=== PATIENT | male | born 1935 | race African-American/Black ===

== ENCOUNTER → 2016-07-12 | Outpatient (CLI) | payer MEDICARE, OTHER ==
[2016-01-14 17:30] VITALS: BP 160/81
[~2016-07-12] MED LIST: ASPI-482 PO; CARV25TA2 PO; DOCU100C5 PO; DOFE500C PO; DULO60CA44 PO; DUTA0.5C PO; FINA5TAB4 PO; FURO20TA3 PO; GABA-586 PO; HUM100IN3 SQ; HYDR-2678 PO; ISOS20TA2 PO; NITR0.4T6 SL; POTA20TA84 PO; PYRI200T PO; PYRI250T PO; SIMV20TA3 PO; TAMS0.4C97 PO; TORS20TA2 PO; VALS320T2 PO; WARF5TAB PO; WARF5TAB7 PO
[2016-07-12 09:53] LABS: BASO % 1 % (0-3); EOS % 4 % (0-3); HEMATOCRIT 32.1 % (39.0-53.0); HEMOGLOBIN 10.6 g/dL (13.0-17.5); LYMPH # 2.4 x10^3/uL (1.0-4.8); LYMPH % 36 % (24-48); MEAN CORPUSCULAR HEMOGLOBIN 28 pg (25-35); MEAN CORPUSCULAR HGB CONC 33 g/dL (31-37); MEAN CORPUSCULAR VOLUME 84 fL (79-100); MONO % 7 % (0-9); NEUT % 52 % (31-73); PLATELET COUNT 234 x10^3/uL (140-400); RED BLOOD COUNT 3.81 x10^6/uL (4.30-5.70); RED CELL DISTRIBUTION WIDTH 16.8 % (11.5-14.5); WHITE BLOOD COUNT 6.5 x10^3/uL (4.0-11.0)
[2016-07-12 10:01] LABS: INR 1.6 (0.8-1.1)
[2016-07-12 10:09] LABS: CALCIUM 9.2 mg/dL (8.5-10.1); CREATININE 1.9 mg/dL (0.7-1.3); GFR 41.2; POTASSIUM 4.2 mmol/L (3.5-5.1)
[2016-07-12 12:50] LABS: BILIRUBIN,URINE NEGATIVE (NEG); GLUCOSE,URINE NEGATIVE (NEG); NITRITE,URINE NEGATIVE (NEG); PROTEIN,URINE NEGATIVE (NEG-TRACE); UROBILINOGEN,URINE 0.2 mg/dL (0.2 mg/dL)
[2016-07-12 13:02] LABS: BACTERIA,URINE 0 /HPF (0-FEW); RBC,URINE 0 /HPF (0-2); SQUAMOUS EPITHELIAL CELL,UR FEW /LPF; WBC,URINE 0 /HPF (0-4)
--- NOTE | 2016-07-12 15:04 | RAD ---
Indication: Pre-op for knee replacement surgery. Time of exam 1338 hours. Correlation is made with prior study 07/04/2012. The heart is enlarged but stable. The cardiac defibrillator remains in place. No infiltrate, effusion or pneumothorax is detected. Impression: Stable chest. No acute feature is detected.
== END | disposition home or self-care (01) ==
LOC: SURGPAT 12:38
PROVIDERS: ATTEND Orthopaedic Surgery
DX: Z01.818 Encounter for other preprocedural examination (principal); I10 Essential (primary) hypertension
CPT/HCPCS: 36415; 71020; 80048; 81001; 82040; 83036; 85027; 85610; 85651; 85730; 87641

== ENCOUNTER → 2016-08-17 | Outpatient (CLI) | payer MEDICARE, OTHER ==
[2016-07-27 11:09] VITALS: BP 137/73
--- NOTE | 2016-08-17 14:35 | RAD ---
Left clavicle, 2 views, 08/17/2016: History: Chronic pain No fracture or destructive bony lesion is seen. There is mild degenerative change at the AC joint. Degenerative changes are also noted at the glenohumeral articulation. A transvenous pacemaker and associated leads are projected over the left infraclavicular region. IMPRESSION: 1. Mild degenerative change at the AC joint. 2. No acute bony abnormality is detected.
== END | disposition home or self-care (01) ==
LOC: RAD 11:28
PROVIDERS: ATTEND Internal Medicine
DX: M25.512 Pain in left shoulder (principal)
CPT/HCPCS: 73000

== ENCOUNTER 2017-06-03 14:21 | Emergency (ER) | payer MEDICARE, OTHER ==
[~2017-06-03] VITALS: Ht 170.2 cm; Wt 127.0 kg
[~2017-06-03 14:21] MED LIST changes: +DOCU100C28 PO; -DOCU100C5 PO; +NITR0.4T22 SL; -NITR0.4T6 SL; +WARF-78 PO; -WARF5TAB PO
[2017-06-03 15:51] LABS: HEMATOCRIT 32.5 % (39.0-53.0); HEMOGLOBIN 10.5 g/dL (13.0-17.5); RED BLOOD COUNT 3.82 x10^6/uL (4.30-5.70); RED CELL DISTRIBUTION WIDTH 18.4 % (11.5-14.5); WHITE BLOOD COUNT 6.6 x10^3/uL (4.0-11.0)
--- NOTE | 2017-06-03 15:59 | RAD ---
Right knee, 2 views, 06/03/2017: History: Knee pain There is severe narrowing of the medial compartment of the knee joint with subchondral sclerosis and moderate marginal spurring. There are moderate degenerative change at the patellofemoral articulation. No fracture is identified. No large joint effusion is seen. Scattered arterial calcifications are present. IMPRESSION: 1. Moderately severe degenerative change with dominant involvement of the medial compartment of the knee joint. 2. No acute bony abnormality is detected.
[2017-06-03 16:00] LABS: INR 3.2 (0.8-1.1)
[2017-06-03 16:23] LABS: ALBUMIN 3.2 g/dL (3.4-5.0); ALBUMIN/GLOBULIN RATIO 0.8 (1.0-1.7); CALCIUM 9.2 mg/dL (8.5-10.1); CREATININE 1.6 mg/dL (0.7-1.3); GFR 50.2; POTASSIUM 3.7 mmol/L (3.5-5.1); TOTAL BILIRUBIN 1.3 mg/dL (0.2-1.0); TOTAL PROTEIN 7.4 g/dL (6.4-8.2)
--- NOTE | 2017-06-03 19:06 | PHYS DOC ---
Past Medical History Past Medical History: A-Fib, Arthritis, Diabetes-Type II, High Cholesterol, Hypertension, DC, Other Additional Past Medical Histor: NEUROPATHY Past Surgical History: Knee Replacement, Pacemaker, Tonsillectomy, Other Additional Past Surgical Histo: lt.wrist,lt knee,pelvis,rt.shoulder,back Alcohol Use: Occasionally Drug Use: None Adult General Chief Complaint Chief Complaint: LOWER EXT PAIN HPI HPI Patient is a 81 year old male with complaints of right leg pain. 81-year-old male past history of DJD presents with right knee pain. It since last night. No fevers. No injury. The pain is worse with moving. He is able to walk with a cane with pain. He has known osteoarthritis. He has not no sensory redness or significant warmth to the joint. He does take Coumadin. He had no swelling to the leg. Review of Systems Review of Systems Constitutional: Denies fever or chills. Eyes: Denies change in visual acuity, redness, or eye pain HENT: Denies nasal congestion or sore throat Respiratory: Denies cough or shortness of breath Cardiovascular: No additional information not addressed in HPI GI: Denies abdominal pain, nausea, vomiting, bloody stools or diarrhea : Denies dysuria or hematuria Musculoskeletal: Denies back pain or joint pain; right knee pain. Integument: Denies rash or skin lesions Neurologic: Denies headache, focal weakness or sensory changes Endocrine: Denies polyuria or polydipsia All other systems were reviewed and found to be within normal limits, except as documented in this note. Allergies Allergies Allergies Coded Allergies Type Severity Reaction Last Updated Verified tetracycline Allergy Intermediate rash/blsters to head of penis(per pt). Yes Physical Exam Physical Exam Constitutional: Well developed, well nourished, no acute distress, non-toxic appearance. HENT: Normocephalic, atraumatic, bilateral external ears normal, oropharynx moist, no oral exudates, nose normal. Eyes: PERRLA, EOMI, conjunctiva normal, no discharge. Neck: Normal range of motion, no tenderness, supple, no stridor. Cardiovascular:Heart rate regular rhythm, no murmur Lungs & Thorax: Bilateral breath sounds clear to auscultation Abdomen: Bowel sounds normal, soft, no tenderness, no masses, no pulsatile masses. Skin: Warm, dry, no erythema, no rash. Back: No tenderness, no CVA tenderness. Extremities: Tenderness to the right knee; no erythema, pain on movement. Stable joint. I do not feel a significant effusion. Neurologic: Alert and oriented X 3, normal motor function, normal sensory function, no focal deficits noted. Psychologic: Affect normal, judgement normal, mood normal. Current Patient Data Vital Signs Vital Signs Date Time Temp Pulse Resp B/P (MAP) Pulse Ox O2 Delivery O2 Flow Rate FiO2 06/03/17 16:23 74 16 175/81 (112) 96 Room Air 06/03/17 14:43 97.9 97.9 Lab Values Laboratory Tests Test 06/03/17 15:42 White Blood Count 6.6 x10^3/uL (4.0-11.0) Red Blood Count 3.82 x10^6/uL (4.30-5.70) L Hemoglobin 10.5 g/dL (13.0-17.5) L Hematocrit 32.5 % (39.0-53.0) L Mean Corpuscular Volume 85 fL (79-100) Mean Corpuscular Hemoglobin 28 pg (25-35) Mean Corpuscular Hemoglobin Concent 32 g/dL (31-37) Red Cell Distribution Width 18.4 % (11.5-14.5) H Platelet Count 238 x10^3/uL (140-400) Erythrocyte Sedimentation Rate 75 (0-15) H Prothrombin Time 31.0 SEC (11.7-14.0) H Prothrombin Time INR 3.2 (0.8-1.1) H Sodium Level 142 mmol/L (136-145) Potassium Level 3.7 mmol/L (3.5-5.1) Chloride Level 106 mmol/L (98-107) Carbon Dioxide Level 27 mmol/L (21-32) Anion Gap 9 (6-14) Blood Urea Nitrogen 16 mg/dL (8-26) Creatinine 1.6 mg/dL (0.7-1.3) H Estimated GFR (Cockcroft-Gault) 50.2 BUN/Creatinine Ratio 10 (6-20) Glucose Level 169 mg/dL (70-99) H Calcium Level 9.2 mg/dL (8.5-10.1) Total Bilirubin 1.3 mg/dL (0.2-1.0) H Aspartate Amino Transferase (AST) 19 U/L (15-37) Alanine Aminotransferase (ALT) 13 U/L (16-63) L Alkaline Phosphatase 115 U/L (46-116) C-Reactive Protein, Quantitative Pending Total Protein 7.4 g/dL (6.4-8.2) Albumin 3.2 g/dL (3.4-5.0) L Albumin/Globulin Ratio 0.8 (1.0-1.7) L Laboratory Tests 06/03/17 15:42 Laboratory Tests 06/03/17 15:42 EKG EKG [] Radiology/Procedures Radiology/Procedures []Right knee, 2 views, 06/03/2017: History: Knee pain There is severe narrowing of the medial compartment of the knee joint with subchondral sclerosis and moderate marginal spurring. There are moderate degenerative change at the patellofemoral articulation. No fracture is identified. No large joint effusion is seen. Scattered arterial calcifications are present. IMPRESSION: 1. Moderately severe degenerative change with dominant involvement of the medial compartment of the knee joint. 2. No acute bony abnormality is detected. DICTATED and SIGNED BY: BONIFACIO ELLIOTT MD DATE: 06/03/17 1641 CC: PHIL VILLARREAL MD; DAISY HAYES MD ~ Course & Med Decision Making Course & Med Decision Making Pertinent Labs and Imaging studies reviewed. (See chart for details) Patient does not want to be admitted. I do not see evidence of a septic joint at this time. I discussed with Dr. Neal and he agrees with the plan and will see him in the next couple a days in the office. Dx: right knee arthritis. Dragon Disclaimer Dragon Disclaimer This electronic medical record was generated, in whole or in part, using a voice recognition dictation system. Departure Departure Referrals: PHIL VILLARREAL MD (PCP) DAISY HAYES MD Jun 03, 2017 19:06
[2017-06-03] MEDS ORDERED: HYDR-971 PO (19:12)
[2017-06-03] MEDS ORDERED: HYDROcodone/APAP 5/325MG 1 TAB TABLET PO ONE (19:15)
[2017-06-03 19:23] VITALS: BP 164/80
[2017-06-03 19:30] LABS: C-REACTIVE PROTEIN 27.4 mg/L (0-3.3)
== END 2017-06-03 19:24 | disposition home or self-care (01) ==
LOC: ER 14:21
DX: M17.11 Unilateral primary osteoarthritis, right knee (principal); I48.91 Unspecified atrial fibrillation; E11.40 Type 2 diabetes mellitus with diabetic neuropathy, unspecified; E78.00 Pure hypercholesterolemia, unspecified; I10 Essential (primary) hypertension; I25.2 Old myocardial infarction; Z95.0 Presence of cardiac pacemaker; Z79.01 Long term (current) use of anticoagulants; Z96.652 Presence of left artificial knee joint; Z88.1 Allergy status to other antibiotic agents
CPT/HCPCS: 36415; 73562; 80053; 85027; 85610; 85651; 86140; 99285

== ENCOUNTER → 2018-02-27 | Outpatient (CLI) | payer MEDICARE, OTHER ==
[~2018-02-27] MED LIST changes: +HYDR-971 PO; +WARF-31 PO; -WARF5TAB7 PO
--- NOTE | 2018-02-27 16:40 | RAD ---
Chest, 2 views, 02/27/2018: HISTORY: Cough, diabetes Comparison is made to a study from 04/22/2017. A left-sided transvenous pacing device remains in place with multiple leads extending into the heart. The heart is mildly enlarged. There is tortuosity of the thoracic aorta. The pulmonary vascularity is normal. No pulmonary infiltrate is seen. Slight blunting of the costophrenic angles suggests a small amount of pleural fluid. Moderate spurring is present in the spine. IMPRESSION: 1. Unchanged cardiomegaly. 2. Probable tiny pleural effusions. 3. No acute infiltrates. Electronically signed by: Trevor Guerrero MD (02/27/2018 4:37 PM) [facility]
== END | disposition home or self-care (01) ==
LOC: RAD 14:10
PROVIDERS: ATTEND Internal Medicine
DX: I13.0 Hypertensive heart and chronic kidney disease with heart failure and stage 1 through stage 4 chronic kidney disease, or unspecified chronic kidney disease (principal); I25.2 Old myocardial infarction; E11.40 Type 2 diabetes mellitus with diabetic neuropathy, unspecified; E11.21 Type 2 diabetes mellitus with diabetic nephropathy; E11.22 Type 2 diabetes mellitus with diabetic chronic kidney disease; E78.5 Hyperlipidemia, unspecified; M17.11 Unilateral primary osteoarthritis, right knee; N18.2 Chronic kidney disease, stage 2 (mild); K21.9 Gastro-esophageal reflux disease without esophagitis; Z88.1 Allergy status to other antibiotic agents; Z87.891 Personal history of nicotine dependence; Z82.49 Family history of ischemic heart disease and other diseases of the circulatory system; Z79.82 Long term (current) use of aspirin; Z79.01 Long term (current) use of anticoagulants
CPT/HCPCS: 71046

== ENCOUNTER 2019-01-19 19:37 | Inpatient (IN) | payer MEDICARE, OTHER ==
[~2019-01-19] VITALS: Ht 180.3 cm; Wt 83.5 kg
[~2019-01-19 19:37] MED LIST changes: +AMLO5TAB10 PEG; +ATOR40TA59 PEG; +CARV3.1210 PEG; +DEXA1TAB PEG; -DULO60CA44 PO; +DULO60CA45 PO; -GABA-586 PO; +GABA300C18 PO; +HYDR-3164 PO; -HYDR-971 PO; +INSU100I11 SQ; +LANS30TA6 FT; +LEVE100S8 PEG; +LORA0.5T96 PEG; +MORP100S3 SL; +PHEN100O4 PEG; +SCOP1PAT11 TD; +TIMO10DR5 RIGHTEYE
[2019-01-19] MEDS ORDERED: PIP/TAZO PER PHARMACY MC PRN (20:00)
[2019-01-19] MEDS ORDERED: PIPERACILLIN/TAZOBACTAM 3.375 GM in IV NORMAL SALINE 50ML 50 ML IV ONE (20:00)
[2019-01-19 20:05] LABS: BASO # 0.1 x10^3/uL (0.0-0.2); BASO % 1 % (0-3); EOS # 0.1 x10^3/uL (0.0-0.7); EOS % 1 % (0-3); HEMATOCRIT 24.9 % (39.0-53.0); HEMOGLOBIN 8.3 g/dL (13.0-17.5); LYMPH # 1.4 x10^3/uL (1.0-4.8); LYMPH % 20 % (24-48); MEAN CORPUSCULAR HEMOGLOBIN 31 pg (25-35); MEAN CORPUSCULAR HGB CONC 34 g/dL (31-37); MEAN CORPUSCULAR VOLUME 91 fL (79-100); MONO # 0.5 x10^3/uL (0.0-1.1); MONO % 7 % (0-9); NEUT # 4.9 x10^3/uL (1.8-7.7); NEUT % 71 % (31-73); PLATELET COUNT 283 x10^3/uL (140-400); RED BLOOD COUNT 2.73 x10^6/uL (4.30-5.70); RED CELL DISTRIBUTION WIDTH 17.1 % (11.5-14.5); WHITE BLOOD COUNT 6.9 x10^3/uL (4.0-11.0)
[2019-01-19 20:13] LABS: BILIRUBIN,URINE NEGATIVE (NEG); CLARITY,URINE CLEAR; COLOR,URINE YELLOW; NITRITE,URINE NEGATIVE (NEG); PH,URINE 8.5; PROTEIN,URINE 100 mg/dL (NEG-TRACE); UROBILINOGEN,URINE 0.2 mg/dL (0.2 mg/dL)
[2019-01-19 20:14] LABS: PROTHROMBIN TIME PATIENT 13.9 SEC (11.7-14.0)
[2019-01-19 20:16] LABS: CALCIUM 9.4 mg/dL (8.5-10.1); CREATININE 1.1 mg/dL (0.7-1.3); POTASSIUM 4.6 mmol/L (3.5-5.1)
[2019-01-19 20:20] LABS: BACTERIA,URINE FEW /HPF (0-FEW); SQUAMOUS EPITHELIAL CELL,UR OCC /LPF; WBC,URINE TNTC /HPF (0-4)
[2019-01-19 20:23] LABS: ALBUMIN/GLOBULIN RATIO 0.5 (1.0-1.7); TOTAL BILIRUBIN 0.4 mg/dL (0.2-1.0); TOTAL PROTEIN 5.9 g/dL (6.4-8.2)
--- NOTE | 2019-01-19 20:39 | RAD ---
Exam: Chest one view INDICATION: Shortness of breath TECHNIQUE: Frontal view of the chest Comparisons: 12/31/2018 FINDINGS: AICD in stable position. Heart is enlarged, stable. Pulmonary vessels are within normal limits. Near complete opacification of the left hemithorax with small amount of aerated lung at the left upper lung. IMPRESSION: Near complete opacification of the left lung likely secondary to large pleural effusion. Mucus plugging is also a possibility. Superimposed infectious process is difficult to exclude. Electronically signed by: Ana España MD (01/19/2019 8:37 PM) [facility]
[2019-01-19] MEDS ORDERED: VANCOMYCIN PER PHARMACY MC PRN (20:45)
[2019-01-19] MEDS ORDERED: VANCOMYCIN 1GM IVPB FOR OMNI 250 ML IV ONE (20:45)
[2019-01-19] MEDS ORDERED: POTASSIUM CL 20MEQ D5-0.45NACL 1,000 ML IV ONE (20:45)
[2019-01-19] MEDS: ALBUTEROL SULFATE 2.5 MG/3 ML NEBU. NEB SCH (21:00)
[2019-01-19] MEDS ORDERED: VANCOMYCIN 2 GM in IV NORMAL SALINE 500ML BAG 500 ML IV ONE (21:00)
--- NOTE | 2019-01-19 21:49 | PHYS DOC ---
Past Medical History Past Medical History: A-Fib, Arthritis, Diabetes-Type II, High Cholesterol, Hypertension, PA, Other Additional Past Medical Histor: NEUROPATHY Past Surgical History: Knee Replacement, Pacemaker, Tonsillectomy, Other Additional Past Surgical Histo: lt.wrist,lt knee,pelvis,rt.shoulder,back Alcohol Use: Occasionally Drug Use: None Adult General Chief Complaint Chief Complaint: DYSPNEA/RESPIRATOY DISTRESS HPI HPI Patient is a 83 year old male brought in by ambulance from a local half-way after a witnessed aspiration event he threw up this caused him to aspirate it was witnessed by staff paramedics were bagging on arrival due to inadequate respirations. Patient does have a history of brain tumor currently not getting any treatment for that hospice has been recommended at baseline he is basically nonverbal and nonresponsive really. Patient Dr. Bradford. Additional history obtained from the patient is not on hospice she wants him to keep all of his medications and she is hoping for a miracle in her words. Review of Systems Review of Systems chen by mental status Current Medications Current Medications Current Medications Medications (Trade) Dose Ordered Sig/Vikas Start Time Stop Time Status Last Admin Dose Admin Albuterol Sulfate (Ventolin Neb Soln) 2.5 mg QID 01/19/19 21:00 Piperacillin Sod/ Tazobactam Sod (Zosyn Per Pharmacy) 1 each PRN DAILY PRN 01/19/19 20:00 UNV Piperacillin Sod/ Tazobactam Sod 3.375 gm/Sodium Chloride 50 ml @ 100 mls/hr 1X ONCE 01/19/19 20:00 01/19/19 20:29 DC 01/19/19 20:30 100 MLS/HR Potassium Chloride/Dextrose/ Sod Cl 1,000 ml @ 75 mls/hr 1X ONCE 01/19/19 20:45 01/20/19 10:04 Vancomycin HCl (Vanco Per Pharmacy) 1 each PRN DAILY PRN 01/19/19 20:45 UNV Vancomycin HCl 2 gm/Sodium Chloride 500 ml @ 250 mls/hr 1X ONCE 01/19/19 21:00 01/19/19 22:59 01/19/19 21:10 250 MLS/HR Allergies Allergies Allergies Coded Allergies Type Severity Reaction Last Updated Verified tetracycline Allergy Intermediate rash/blsters to head of penis(per pt). 7/27/16 Yes Physical Exam Physical Exam Constitutional: ill appearing HENT: Normocephalic, atraumatic, bilateral external ears normal, oropharynx moist, no oral exudates, nose normal. [] Eyeseye discharge noted, has intermittent left gaze deviation Neck: Normal range of motion, no tenderness, supple, no stridor. [] Cardiovascular:tachy difficult to asssess murmur Lungs & Thorax: coarse b/l worse on the left decreased on theleft shallow respirations were in the mid 30s Abdomen: soft, no tenderness, no masses, no pulsatile masses. [] gtube in place Skin: Warm, dry, no erythema, no rash. [] Extremities: No tenderness, no cyanosis, no clubbing, ROM intact, no edema. [] Neurologic: Eyes are open spontaneously really does not follow commands really does not have any spontaneous movement. Eyes were intermittently gaze deviation to the left than came back to normal no obvious seizure activity was witnessed otherwise. This essentially nonverbal and bedbound at baseline this is not that much different according to the family Current Patient Data Vital Signs Vital Signs Date Time Temp Pulse Resp B/P (MAP) Pulse Ox O2 Delivery O2 Flow Rate FiO2 01/19/19 19:37 98.4 98 26 166/56 (92) 98 NonRebreather Mask 9.0 98.4 Lab Values Laboratory Tests Test 01/19/19 19:40 White Blood Count 6.9 x10^3/uL (4.0-11.0) Red Blood Count 2.73 x10^6/uL (4.30-5.70) L Hemoglobin 8.3 g/dL (13.0-17.5) L Hematocrit 24.9 % (39.0-53.0) L Mean Corpuscular Volume 91 fL (79-100) Mean Corpuscular Hemoglobin 31 pg (25-35) Mean Corpuscular Hemoglobin Concent 34 g/dL (31-37) Red Cell Distribution Width 17.1 % (11.5-14.5) H Platelet Count 283 x10^3/uL (140-400) Neutrophils (%) (Auto) 71 % (31-73) Lymphocytes (%) (Auto) 20 % (24-48) L Monocytes (%) (Auto) 7 % (0-9) Eosinophils (%) (Auto) 1 % (0-3) Basophils (%) (Auto) 1 % (0-3) Neutrophils # (Auto) 4.9 x10^3/uL (1.8-7.7) Lymphocytes # (Auto) 1.4 x10^3/uL (1.0-4.8) Monocytes # (Auto) 0.5 x10^3/uL (0.0-1.1) Eosinophils # (Auto) 0.1 x10^3/uL (0.0-0.7) Basophils # (Auto) 0.1 x10^3/uL (0.0-0.2) Prothrombin Time 13.9 SEC (11.7-14.0) Prothrombin Time INR 1.1 (0.8-1.1) Urine Color Yellow Urine Clarity Clear Urine pH 8.5 Urine Specific Thornton 1.020 Urine Protein 100 mg/dL (NEG-TRACE) Urine Glucose (UA) Negative mg/dL (NEG) Urine Ketones (Stick) Negative mg/dL (NEG) Urine Blood Small (NEG) Urine Nitrite Negative (NEG) Urine Bilirubin Negative (NEG) Urine Urobilinogen Dipstick 0.2 mg/dL (0.2 mg/dL) Urine Leukocyte Esterase Large (NEG) Urine RBC 1-2 /HPF (0-2) Urine WBC Tntc /HPF (0-4) Urine Squamous Epithelial Cells Occ /LPF Urine Bacteria Few /HPF (0-FEW) Urine Mucus Slight /LPF Sodium Level 145 mmol/L (136-145) Potassium Level 4.6 mmol/L (3.5-5.1) Chloride Level 105 mmol/L (98-107) Carbon Dioxide Level 32 mmol/L (21-32) Anion Gap 8 (6-14) Blood Urea Nitrogen 25 mg/dL (8-26) Creatinine 1.1 mg/dL (0.7-1.3) Estimated GFR (Cockcroft-Gault) 77.0 BUN/Creatinine Ratio 23 (6-20) H Glucose Level 161 mg/dL (70-99) H Lactic Acid Level 1.5 mmol/L (0.4-2.0) Calcium Level 9.4 mg/dL (8.5-10.1) Total Bilirubin 0.4 mg/dL (0.2-1.0) Aspartate Amino Transferase (AST) 18 U/L (15-37) Alanine Aminotransferase (ALT) 14 U/L (16-63) L Alkaline Phosphatase 108 U/L (46-116) Troponin I Quantitative < 0.017 ng/mL (0.000-0.055) DW-[id number]-Type Natriuretic Peptide 5048 pg/mL (0-449) H Total Protein 5.9 g/dL (6.4-8.2) L Albumin 2.0 g/dL (3.4-5.0) L Albumin/Globulin Ratio 0.5 (1.0-1.7) L Procalcitonin 0.22 ng/mL (0.00-0.10) H Laboratory Tests 01/19/19 19:40 Laboratory Tests 01/19/19 19:40 EKG EKG EKG shows a difficult to tell the exact rhythm it could be sinus with PACs differential would include A. fib no obvious STEMI was identified overall poor baseline difficult to interpret[] Radiology/Procedures Radiology/Procedures [] Impressions: IMPRESSION: Near complete opacification of the left lung likely secondary to large pleural effusion. Mucus plugging is also a possibility. Superimposed infectious process is difficult to exclude. Electronically signed by: Ana Piña MD (01/19/2019 8:37 PM) [facility] DICTATED and SIGNED BY: ANA PIÑA MD DATE: 01/19/192036 Course & Med Decision Making Course & Med Decision Making Pertinent Labs and Imaging studies reviewed. (See chart for details) []Diabetes hypertension hypercholesterolemia brain tumor hospice has recommended, not yet fully initiated by the family. Brought in by embolus after a witnessed aspiration event initially he was being bagged on arrival however due to his DNR/DNI status we did put him on a facemask oxygen he actually improved somewhat he was still breathing in the 30s with some shallow respirations but his saturation was 100% on a nonrebreather ER workup did reveal a probable either large mucous plug or pneumonia with pleural effusion at the left side of the lung. This looks different from December 31. Labs actually don't look too bad overall he does have a UTI history troponins negative his creatinine is normal I spoke with the family the and the son Robbie in detail ultimately they do want essentially comfort measures with option of continuing medications and antibiotics and IV fluids as needed just to see if he will improve. They do not want yet to be on hospice. I spoke with Dr. Mendoza in detail about the case reviewed the labs and the x- ray he had several suggestions for plan including vancomycin and Zosyn consult marcie Yovany asked nurses on floor to resume home meds D5 half-normal saline 20 of K at 75 mL per hour Dilantin level in the morning nebs 4 times a day consult pulmonary as well I told this to the family we talked in detail about the plan of care the acuity of the condition plan for conservative treatment to see if he will improve. At this point, think x-rays probably most consistent with a mucous plug given the history of effusion is certainly a possibility currently the hemodynamics and oxygenation are adequate blood pressure in the 150s oxygen saturation 100% on nonrebreather Critical care time was 50 minutes exclusive of procedures. Dragon Disclaimer Dragon Disclaimer This electronic medical record was generated, in whole or in part, using a voice recognition dictation system. Departure Departure Impression: Primary Impression: Pneumonia Additional Impressions: Unresponsive Urinary tract infection Disposition: 09 ADMITTED INPATIENT Admitting Physician: Andrés Mendoza Condition: GUARDED Referrals: KIARA HANDY (PCP) Problem Qualifiers LUCINDA PEDRAZA MD Jan 19, 2019 21:49
[2019-01-19 22:00] VITALS: BP 154/83
[2019-01-19] MEDS ORDERED: IV DEXTROSE 5% 250 ML BAG. IV PRN (23:00)
[2019-01-19] MEDS ORDERED: ONDANSETRON PF 4 MG/2 ML VIAL. IV PRN (23:00)
[2019-01-19] MEDS ORDERED: ALBUTEROL SULFATE 2.5 MG/3 ML NEBU. NEB PRN (23:00)
[2019-01-19] MEDS ORDERED: DEXTROSE 50% 25 GM / 50ML DISP.SYRIN. IV PRN (23:00)
[2019-01-19] MEDS ORDERED: LORazepam 0.5 MG TABLET PEG PRN (23:15)
[2019-01-19] MEDS ORDERED: DOCU50LI PEG (23:23)
[2019-01-19] MEDS ORDERED: POTA20LI2 PEG (23:23)
[2019-01-19] MEDS ORDERED: FERR220S4 PEG (23:23)
[2019-01-19] MEDS ORDERED: CEFP200T PO (23:23)
[2019-01-19] MEDS ORDERED: PHEN125O4 PEG (23:23)
[2019-01-19] MEDS ORDERED: FURO-68 PO (23:23)
[2019-01-19] MEDS ORDERED: LEVE100S18 PEG (23:23)
[2019-01-19] MEDS: INSULIN LISPRO 300 UNITS/3 ML INSULN.PEN. SQ SCH (23:58)
--- NOTE | 2019-01-19 23:59 | NUR ---
Admission Pt arrived to the unit at approximately 2200 via gurney from the ED. Pt is unresponsive and non-verbal, occasionally open his eye for a split second here and there. RN unable to retained any information from pt. Admission was completely based on report given, information packet from long term, and from previous admission information. Pt continue to have shallow respiration, emesis x2 since he's been on the unit. RN called to verified orders with kip Chavis to continue all home medications except feeding tube for now. Okay to start pt on continuous fluid even with elevated BNP level. Pt was made comfortable in bed. Will continue to monitor pt closely.
[2019-01-20] VITALS (11 sets, daily range): BP systolic 136–174; BP diastolic 62–91
[2019-01-20] MEDS ORDERED: POTASSIUM CL 20MEQ D5-0.45NACL 1,000 ML IV SCH
[2019-01-20] MEDS ORDERED: C.DIFF MED SCREEN BY RX. MC ONE
[2019-01-20] MEDS: PIPERACILLIN/TAZOBACTAM 3.375 GM in IV NORMAL SALINE 50ML 50 ML IV SCH ×4 (00:10→18:00)
--- NOTE | 2019-01-20 05:30 | NUR ---
Pharmacy Vancomycin Dosing Note S:Consulted to monitor and dose vancomycin started 01/19/19. O:LONNIE GAINES is a 83 year old M with Pneumonia . Height: 5 feet, 11 inches Weight: 84.269525 kg [place] Body Weight: 75.30 Adjusted Body Weight: 78.78 Dosing Weight: Adjusted Other Antibiotics: ZOSYN 3.375 GM Q6H LABS: Last BUN: 25 Last Creatinine: 1.1 Creatinine Clearance: 55 mL/min Last WBC: 6.9 Last Procalcitonin: Tmax (past 24 hours): Microbiology: I/O: Drug Levels: Last level: on at Last dose given 01/19/19 at 2100 Vancomycin Dosing: Loading Dose: 2000 mg x1 Dosing Weight: Adjusted Target Trough: 15-20 A: Based on: WT AND CRCL P: 1. Begin Vancomycin 1000 mg IV q12h 2. Follow up Trough level on 01/21/19 at 0830 3. Pharmacy will continue to monitor, follow and adjust therapy as needed. MAT FIGUEROA RPH, 01/20/19 0530 Signed: 01/20/19 at 0531 by MAT FIGUEROA RPH PHA
[2019-01-20] MEDS: INSULIN LISPRO 300 UNITS/3 ML INSULN.PEN. SQ SCH ×3 (06:00→17:00)
[2019-01-20] MEDS: ALBUTEROL SULFATE 2.5 MG/3 ML NEBU. NEB SCH ×4 (07:51→20:37)
[2019-01-20] MEDS: CARVEDILOL 3.125 MG TABLET. PEG SCH ×2 (08:00→17:24)
[2019-01-20 08:41] LABS: BASO # 0.1 x10^3/uL (0.0-0.2); BASO % 1 % (0-3); EOS # 0.1 x10^3/uL (0.0-0.7); EOS % 1 % (0-3); HEMATOCRIT 23.3 % (39.0-53.0); HEMOGLOBIN 7.7 g/dL (13.0-17.5); LYMPH # 1.2 x10^3/uL (1.0-4.8); LYMPH % 18 % (24-48); MEAN CORPUSCULAR HEMOGLOBIN 30 pg (25-35); MEAN CORPUSCULAR HGB CONC 33 g/dL (31-37); MEAN CORPUSCULAR VOLUME 91 fL (79-100); MONO # 0.6 x10^3/uL (0.0-1.1); MONO % 8 % (0-9); NEUT # 4.9 x10^3/uL (1.8-7.7); NEUT % 72 % (31-73); PLATELET COUNT 238 x10^3/uL (140-400); RED BLOOD COUNT 2.55 x10^6/uL (4.30-5.70); RED CELL DISTRIBUTION WIDTH 16.7 % (11.5-14.5); WHITE BLOOD COUNT 6.9 x10^3/uL (4.0-11.0)
[2019-01-20 08:52] LABS: CALCIUM 9.4 mg/dL (8.5-10.1); CREATININE 1.1 mg/dL (0.7-1.3); PHENY 1.4 mcg/mL (10.0-20.0); POTASSIUM 4.3 mmol/L (3.5-5.1)
[2019-01-20] MEDS: POTASSIUM BICARB 20 MEQ EFFERVESCENT TABLET. PEG SCH ×2 (09:00→21:52)
[2019-01-20] MEDS ORDERED: PHENYTOIN 100 MG/4 ML ORAL.SUSP. PEG SCH (09:00)
[2019-01-20] MEDS: amLODIPine BESYLATE 5 MG TABLET PEG SCH (09:00)
[2019-01-20] MEDS: DEXAMETHASONE 1 MG TABLET PEG SCH (09:00)
[2019-01-20] MEDS: FERROUS SULFATE ORAL 300 MG/5 ML SOLUTION. PEG SCH (09:00)
[2019-01-20] MEDS ORDERED: VANCOMYCIN 1 GM in IV NORMAL SALINE 250ML 250 ML IV SCH (09:00)
[2019-01-20] MEDS ORDERED: LANSOPRAZOLE 30 MG TAB.RAP.DR FT SCH (09:00)
[2019-01-20] MEDS ORDERED: NON FORMULARY ITEM (Cefpodoxime Proxetil 1 TAB) PO SCH (09:00)
[2019-01-20] MEDS ORDERED: LACTOBACILLUS RHAMNOSUS GG 1 CAPSULE. PO SCH (09:00)
[2019-01-20] MEDS: DOCUSATE 100 MG/10 ML SOLUTION. PEG SCH ×2 (09:00→21:52)
--- NOTE | 2019-01-20 10:03 | NUR ---
Pharmacy Medication Review S: Consulted for medication review re: C.diff Risk Assessment score of 8 O: LONNIE GAINES is a 83 year old with: Previous C.diff infection: No Previous hospitalization: Within 30 days Recent antibiotics: Within 30 days Use of gastric acid suppressor: Yes Transfer from [place]/LTAC: Yes Current antibiotic regimen: Current acid suppression regimen: A: Patient has been identified as having risk factors for C.diff infection as noted above. P:ABX DE-ESCALATION RECOMMENDED: NO, ABX PER ID PROBIOTIC ORDERED: NO, PT WITH ENTERAL TUBE PPI CHANGED TO [id number]: YES SAMEER HURT [facility], 01/20/19 1007
[2019-01-20] MEDS ORDERED: MAGNESIUM HYDROXIDE 2,400 MG/30 ML ORAL.SUSP. PEG PRN (10:30)
[2019-01-20] MEDS ORDERED: ACETAMINOPHEN 650 MG/20.3 ML SOLUTION. PEG PRN (10:30)
--- NOTE | 2019-01-20 10:47 | PDOC ---
Provider Note Provider Note history and physical dictated # [id number] PHIL VILLARREAL MD Jan 20, 2019 10:47
--- NOTE | 2019-01-20 10:55 | PDOC ---
PULMONARY PROGRESS NOTES Vitals Vital Signs Date Time Temp Pulse Resp B/P (MAP) Pulse Ox O2 Delivery O2 Flow Rate FiO2 01/20/19 07:52 100 NonRebreather Mask 12.0 01/20/19 07:00 96.9 85 26 147/83 (104) 96.9 HEENT: Other Lungs: Clear Cardiovascular: S1, S2 Abdomen: Soft, Non-tender, Other Extremities: Other Labs Laboratory Tests Test 01/19/19 19:40 01/19/19 23:39 01/20/19 06:06 01/20/19 08:15 White Blood Count 6.9 x10^3/uL (4.0-11.0) 6.9 x10^3/uL (4.0-11.0) Red Blood Count 2.73 x10^6/uL (4.30-5.70) 2.55 x10^6/uL (4.30-5.70) Hemoglobin 8.3 g/dL (13.0-17.5) 7.7 g/dL (13.0-17.5) Hematocrit 24.9 % (39.0-53.0) 23.3 % (39.0-53.0) Mean Corpuscular Volume 91 fL (79-100) 91 fL (79-100) Mean Corpuscular Hemoglobin 31 pg (25-35) 30 pg (25-35) Mean Corpuscular Hemoglobin Concent 34 g/dL (31-37) 33 g/dL (31-37) Red Cell Distribution Width 17.1 % (11.5-14.5) 16.7 % (11.5-14.5) Platelet Count 283 x10^3/uL (140-400) 238 x10^3/uL (140-400) Neutrophils (%) (Auto) 71 % (31-73) 72 % (31-73) Lymphocytes (%) (Auto) 20 % (24-48) 18 % (24-48) Monocytes (%) (Auto) 7 % (0-9) 8 % (0-9) Eosinophils (%) (Auto) 1 % (0-3) 1 % (0-3) Basophils (%) (Auto) 1 % (0-3) 1 % (0-3) Neutrophils # (Auto) 4.9 x10^3/uL (1.8-7.7) 4.9 x10^3/uL (1.8-7.7) Lymphocytes # (Auto) 1.4 x10^3/uL (1.0-4.8) 1.2 x10^3/uL (1.0-4.8) Monocytes # (Auto) 0.5 x10^3/uL (0.0-1.1) 0.6 x10^3/uL (0.0-1.1) Eosinophils # (Auto) 0.1 x10^3/uL (0.0-0.7) 0.1 x10^3/uL (0.0-0.7) Basophils # (Auto) 0.1 x10^3/uL (0.0-0.2) 0.1 x10^3/uL (0.0-0.2) Prothrombin Time 13.9 SEC (11.7-14.0) Prothromb Time International Ratio 1.1 (0.8-1.1) Urine Color Yellow Urine Clarity Clear Urine pH 8.5 Urine Specific [place] 1.020 Urine Protein 100 mg/dL (NEG-TRACE) Urine Glucose (UA) Negative mg/dL (NEG) Urine Ketones (Stick) Negative mg/dL (NEG) Urine Blood Small (NEG) Urine Nitrite Negative (NEG) Urine Bilirubin Negative (NEG) Urine Urobilinogen Dipstick 0.2 mg/dL (0.2 mg/dL) Urine Leukocyte Esterase Large (NEG) Urine RBC 1-2 /HPF (0-2) Urine WBC Tntc /HPF (0-4) Urine Squamous Epithelial Cells Occ /LPF Urine Bacteria Few /HPF (0-FEW) Urine Mucus Slight /LPF Sodium Level 145 mmol/L (136-145) 145 mmol/L (136-145) Potassium Level 4.6 mmol/L (3.5-5.1) 4.3 mmol/L (3.5-5.1) Chloride Level 105 mmol/L (98-107) 107 mmol/L (98-107) Carbon Dioxide Level 32 mmol/L (21-32) 34 mmol/L (21-32) Anion Gap 8 (6-14) 4 (6-14) Blood Urea Nitrogen 25 mg/dL (8-26) 23 mg/dL (8-26) Creatinine 1.1 mg/dL (0.7-1.3) 1.1 mg/dL (0.7-1.3) Estimated GFR (Cockcroft-Gault) 77.0 77.0 BUN/Creatinine Ratio 23 (6-20) Glucose Level 161 mg/dL (70-99) 168 mg/dL (70-99) Lactic Acid Level 1.5 mmol/L (0.4-2.0) Calcium Level 9.4 mg/dL (8.5-10.1) 9.4 mg/dL (8.5-10.1) Total Bilirubin 0.4 mg/dL (0.2-1.0) Aspartate Amino Transf (AST/SGOT) 18 U/L (15-37) Alanine Aminotransferase (ALT/SGPT) 14 U/L (16-63) Alkaline Phosphatase 108 U/L (46-116) Troponin I Quantitative < 0.017 ng/mL (0.000-0.055) FC-Boa-W-Type Natriuretic Peptide 5048 pg/mL (0-449) Total Protein 5.9 g/dL (6.4-8.2) Albumin 2.0 g/dL (3.4-5.0) Albumin/Globulin Ratio 0.5 (1.0-1.7) Procalcitonin 0.22 ng/mL (0.00-0.10) Glucose (Fingerstick) 124 mg/dL (70-99) 144 mg/dL (70-99) Phenytoin (Dilantin) Level 1.4 mcg/mL (10.0-20.0) Phenytoin Last Dose Date Phenytoin Last Dose Time 2044 Laboratory Tests Test 01/19/19 19:40 01/19/19 23:39 01/20/19 06:06 01/20/19 08:15 White Blood Count 6.9 x10^3/uL (4.0-11.0) 6.9 x10^3/uL (4.0-11.0) Red Blood Count 2.73 x10^6/uL (4.30-5.70) 2.55 x10^6/uL (4.30-5.70) Hemoglobin 8.3 g/dL (13.0-17.5) 7.7 g/dL (13.0-17.5) Hematocrit 24.9 % (39.0-53.0) 23.3 % (39.0-53.0) Mean Corpuscular Volume 91 fL (79-100) 91 fL (79-100) Mean Corpuscular Hemoglobin 31 pg (25-35) 30 pg (25-35) Mean Corpuscular Hemoglobin Concent 34 g/dL (31-37) 33 g/dL (31-37) Red Cell Distribution Width 17.1 % (11.5-14.5) 16.7 % (11.5-14.5) Platelet Count 283 x10^3/uL (140-400) 238 x10^3/uL (140-400) Neutrophils (%) (Auto) 71 % (31-73) 72 % (31-73) Lymphocytes (%) (Auto) 20 % (24-48) 18 % (24-48) Monocytes (%) (Auto) 7 % (0-9) 8 % (0-9) Eosinophils (%) (Auto) 1 % (0-3) 1 % (0-3) Basophils (%) (Auto) 1 % (0-3) 1 % (0-3) Neutrophils # (Auto) 4.9 x10^3/uL (1.8-7.7) 4.9 x10^3/uL (1.8-7.7) Lymphocytes # (Auto) 1.4 x10^3/uL (1.0-4.8) 1.2 x10^3/uL (1.0-4.8) Monocytes # (Auto) 0.5 x10^3/uL (0.0-1.1) 0.6 x10^3/uL (0.0-1.1) Eosinophils # (Auto) 0.1 x10^3/uL (0.0-0.7) 0.1 x10^3/uL (0.0-0.7) Basophils # (Auto) 0.1 x10^3/uL (0.0-0.2) 0.1 x10^3/uL (0.0-0.2) Prothrombin Time 13.9 SEC (11.7-14.0) Prothromb Time International Ratio 1.1 (0.8-1.1) Urine Color Yellow Urine Clarity Clear Urine pH 8.5 Urine Specific [place] 1.020 Urine Protein 100 mg/dL (NEG-TRACE) Urine Glucose (UA) Negative mg/dL (NEG) Urine Ketones (Stick) Negative mg/dL (NEG) Urine Blood Small (NEG) Urine Nitrite Negative (NEG) Urine Bilirubin Negative (NEG) Urine Urobilinogen Dipstick 0.2 mg/dL (0.2 mg/dL) Urine Leukocyte Esterase Large (NEG) Urine RBC 1-2 /HPF (0-2) Urine WBC Tntc /HPF (0-4) Urine Squamous Epithelial Cells Occ /LPF Urine Bacteria Few /HPF (0-FEW) Urine Mucus Slight /LPF Sodium Level 145 mmol/L (136-145) 145 mmol/L (136-145) Potassium Level 4.6 mmol/L (3.5-5.1) 4.3 mmol/L (3.5-5.1) Chloride Level 105 mmol/L (98-107) 107 mmol/L (98-107) Carbon Dioxide Level 32 mmol/L (21-32) 34 mmol/L (21-32) Anion Gap 8 (6-14) 4 (6-14) Blood Urea Nitrogen 25 mg/dL (8-26) 23 mg/dL (8-26) Creatinine 1.1 mg/dL (0.7-1.3) 1.1 mg/dL (0.7-1.3) Estimated GFR (Cockcroft-Gault) 77.0 77.0 BUN/Creatinine Ratio 23 (6-20) Glucose Level 161 mg/dL (70-99) 168 mg/dL (70-99) Lactic Acid Level 1.5 mmol/L (0.4-2.0) Calcium Level 9.4 mg/dL (8.5-10.1) 9.4 mg/dL (8.5-10.1) Total Bilirubin 0.4 mg/dL (0.2-1.0) Aspartate Amino Transf (AST/SGOT) 18 U/L (15-37) Alanine Aminotransferase (ALT/SGPT) 14 U/L (16-63) Alkaline Phosphatase 108 U/L (46-116) Troponin I Quantitative < 0.017 ng/mL (0.000-0.055) TT-Nuo-K-Type Natriuretic Peptide 5048 pg/mL (0-449) Total Protein 5.9 g/dL (6.4-8.2) Albumin 2.0 g/dL (3.4-5.0) Albumin/Globulin Ratio 0.5 (1.0-1.7) Procalcitonin 0.22 ng/mL (0.00-0.10) Glucose (Fingerstick) 124 mg/dL (70-99) 144 mg/dL (70-99) Phenytoin (Dilantin) Level 1.4 mcg/mL (10.0-20.0) Phenytoin Last Dose Date Phenytoin Last Dose Time 2044 Medications Active Scripts Medications Dose Route/Sig Max Daily Dose Days Date Category Dose Instructions Potassium Chloride Oral Liquid (Potassium Chloride) 20 Meq/15 Ml Liquid 20 Meq PEG BID 01/19/19 Reported Phenytoin 125 Mg/5 Ml Oral.susp 10 Ml PEG BID 01/19/19 Reported Lasix (Furosemide) 40 Mg Tablet 1 Tab PO DAILY 01/19/19 Reported Levetiracetam 100 Mg/1 Ml Solution 10 Ml PEG BID 01/19/19 Reported Ferosul (Ferrous Sulfate) 220 Mg/5 Ml Solution 7.5 Ml PEG DAILY 01/19/19 Reported Docusate Sodium 50 Mg/5 Ml Liquid 10 Ml PEG BID 01/19/19 Reported Cefpodoxime Proxetil 200 Mg Tablet 1 Tab PO Q12HR 01/19/19 Reported Amlodipine Besylate 5 Mg Tablet 5 Mg PEG DAILY 30 01/08/19 Rx Humalog (Insulin Lispro) 100 Unit/1 Ml Insuln.pen 0 Units SQ Q6HRS 01/07/19 Rx humalog sliding scale every 6 hours while on tube feeding BS 155- 199=1 units humalog 200-299=2 units 300-399=4 units 400-499=6 units Dexamethasone 1 Mg Tablet 2 Mg PEG DAILY 01/07/19 Rx Prevacid (Lansoprazole) 30 Mg Tab.rap.dr 30 Mg FT DAILY 01/07/19 Rx Transderm-Scop (Scopolamine) 1 Each Patch.td72 1 Patch TD Q3DAYS 01/07/19 Rx Ativan (Lorazepam) 0.5 Mg Tablet 0.5 Mg PEG PRN Q6HRS PRN 01/07/19 Rx Morphine Sulfate 100 Mg/5 Ml Solution 5 Mg SL PRN Q1HR PRN 01/07/19 Rx Carvedilol (Carvedilol) 3.125 Mg Tablet 3.125 Mg PEG BID 01/07/19 Rx Atorvastatin Calcium 40 Mg Tablet 40 Mg PEG QHS 01/07/19 Rx Impression . note dictated d/w dr Mendoza thanks CASI EARLY MD Jan 20, 2019 10:55
--- NOTE | 2019-01-20 11:21 | EKG ---
[facility] [address] [place] [address] Test Date: 2019-01-19 Test Time: 19:47:54 Pat Name: LONNIE GAINES Department: Room: Gender: M Cat [employer] Bather: : 1935 Requested By: LUCINDA PEDRAZA Order Number: [id number] Reading MD: Measurements Intervals Bledsoe Rate: 102 P: MI: QRS: 41 QRSD: 128 T: 53 QT: 368 QTc: 484 Interpretive Statements IRREGULAR RHYTHM, NO P-WAVE FOUND VENTRICULAR PREMATURE COMPLEX(ES) NON SPECIFIC INTRAVENTRICULAR BLOCK ABNORMAL ECG RI6.01 No previous ECG available for comparison
--- NOTE | 2019-01-20 11:45 | CONS ---
DATE OF CONSULTATION: 01/20/2019 ATTENDING PHYSICIAN: Andrés Mendoza MD REASON FOR CONSULTATION: The patient seen in pulmonary consultation at the request of Dr. Mendoza for acute hypoxemic respiratory failure. HISTORY OF PRESENT ILLNESS: The patient is an 83-year-old with a presumptive diagnosis of brain cancer, possibly metastatic disease [facility] He was transferred to [facility]. I was asked to see him in consultation. The patient is currently nonresponsive. He is not responsive to sternal rub or deep painful stimuli. He is awake, but follows no commands. I reviewed his chest x-ray, which reveals a new opacity on the left, possible effusion versus a mucous plugging. PAST MEDICAL HISTORY: Remarkable for as mentioned above, presumptive diagnosis of brain cancer, possibly metastatic. In addition, he has a history of diabetes, ischemic cardiomyopathy, hypertension, hyperlipidemia, coronary artery disease, chronic systolic heart failure, history of AVM and status post AICD placement. PAST SURGICAL HISTORY: As above. FAMILY HISTORY: Unknown. REVIEW OF SYSTEMS: Unobtainable secondary to the patient being in a semicomatose state. ALLERGIES: TETRACYCLINE. MEDICATIONS: List was reviewed. PHYSICAL EXAMINATION: VITAL SIGNS: Once again the patient's was in a semicomatose state. He is on nonrebreather at 12 liters. HEENT: Eyes, the sclerae were nonicteric. NECK: Jugular venous distention could not be assessed. LUNGS: Anteriorly scattered rhonchi. CARDIOVASCULAR: Regular rate and rhythm with S1, S2, no S3. ABDOMEN: Soft. EXTREMITIES: Marked edema. NEUROLOGIC: The patient was unresponsive to painful stimuli including sternal rub. LABORATORY DATA: Reviewed. Arterial blood gas was not obtained. Hemoglobin and hematocrit were noted, platelet count was noted. UA was noted. Chest x-ray as indicated above. IMPRESSION: 1. Acute hypoxemic respiratory failure. 2. Aspiration pneumonia. 3. Abnormal x-ray. 4. Presumptive diagnosis of brain cancer, possibly metastatic disease. 5. Elgzl-wv-ipjkyod metabolic encephalopathy/toxic encephalopathy. 6. Type 2 diabetes. 7. Hypertension. 8. Chronic anemia. PLAN: 1. We will proceed with CT chest. 2. Continue current support with antibiotics. 3. Discussed case with Dr. Mendoza. He has had multiple discussions with the who is somewhat unrealistic about the prognosis. Of note, the patient is do not resuscitate, do not intubate candidate. We will continue current support and hope for the best. I doubt that he will survive more than 1-2 months. CASI EARLY MD DR: SHANT/juana JOB#: [id number] / [id number]
--- NOTE | 2019-01-20 12:01 | RAD ---
PQRS Compliance Statement: One or more of the following individualized dose reduction techniques were utilized for this examination: 1. Automated exposure control 2. Adjustment of the mA and/or kV according to patient size 3. Use of iterative reconstruction technique CT chest without contrast January 20, 2019 INDICATION: Lung white out on the left. Aspiration. COMPARISON: Chest radiograph January 19, 2019 TECHNIQUE: Multiple axial CT images of the chest were obtained without intravenous contrast. Coronal and sagittal reformats are provided. FINDINGS: There is complete opacification of the left hemithorax with small amount of pleural fluid and predominately atelectasis of the upper and lower lobes. There is abrupt cut off involving the left mainstem bronchus without definite mass. There is mediastinal shift to the left. There is a calcified granuloma in the right lung middle lobe. There is subsegmental atelectasis the right lung base. No pathologically enlarged thoracic lymph nodes are identified. Evaluation of the left hilum is limited. Heart size is borderline enlarged. Three-vessel coronary artery vascular calcific effusions are identified. Thoracic aorta is normal in course and caliber. Left chest wall cardiac device is identified with leads terminating in the right atrium, right ventricle and coronary sinus. Right humeral hardware is partially profiled. No suspicious osseous normality is identified. Superior endplate Schmorl's node is suspected at L1. Partial osseous fusion is noted at T11-T12. Cholelithiasis. Mild fatty atrophy of the pancreas. Adrenal glands are normal. Gastrostomy tube is present. IMPRESSION: 1. Atelectasis of the left lung with mediastinal shift to the left. Findings are suggestive of obstructive etiology within the left mainstem bronchus. Bronchoscopy may be of benefit for further evaluation and to assess for underlying neoplastic etiology. 2. Mild cardiomegaly with three-vessel coronary artery vascular calcifications. 3. Cholelithiasis. Electronically signed by: Maryjo Vidal MD (01/20/2019 11:58 AM) [facility]
--- NOTE | 2019-01-20 13:19 | HP ---
ADMIT DATE: 01/20/2019 LOCATION: The patient is in room #506. HISTORY OF PRESENT ILLNESS: The patient is an 83-year-old -[place] male who is currently in a residential facility, who has a history of hypertension, coronary artery disease, diabetes mellitus type 2, hyperlipidemia, paroxysmal atrial fibrillation. He has a permanent pacemaker/AICD, obstructive sleep apnea, and also ischemic cardiomyopathy with chronic systolic congestive heart failure, although his last echocardiogram done last month showed a preserved left ventricular ejection fraction, who was admitted to the [facility] in 11/2018, where he was noted to have left-sided hemiparesis. An MRI of the brain showed numerous masses in the brain, including a large one in the right parietal area consistent with either metastasis or a glioblastoma multiforme, which was not biopsied. He was treated with Decadron, currently on 2 mg every day and started on Dilantin and Keppra to help prevent seizures and had a PEG placed and is currently on tube feeding. The patient was at the residential facility, was noted to have a witnessed aspiration and he had acute respiratory failure and had to be bagged and the paramedics arrived and sent him to the [facility] Emergency Room. A chest x-ray showed an almost complete white-out of the left lung and he did not have a fever or leukocytosis, but did have pyuria and has a Cobos catheter in place and was admitted to the hospital after blood culture and urine cultures were ordered, and is started on IV vancomycin and Zosyn. He is unresponsive as he has been prior to admission and is a do not resuscitate, but the family does not want hospice and wants to give him antibiotics and other treatments as necessary, holding on still a glimmer of hope that he will improve. ALLERGIES AND INTOLERANCES: TETRACYCLINE. MEDICATIONS: Prior to admission include carvedilol 3.125 mg b.i.d., Decadron 2 mg every day, Colace 100 mg b.i.d., ferrous sulfate 300 mg b.i.d., Humalog insulin sliding scale every 6 hours, Keppra 1000 mg b.i.d., Prevacid 30 mg every day, Lasix 40 mg every day, lorazepam 0.5 mg every 6 hours p.r.n., morphine sulfate which is Roxanol 5 mg sublingual every hour p.r.n. for shortness of breath or air hunger, Dilantin 250 mg b.i.d., potassium chloride 20 mEq b.i.d., scopolamine patch every 72 hours. He is on Jevity 1.5 at 30 mL an hour. He also is on water flushes 300 mL every 6 hours through his PEG. PAST MEDICAL HISTORY: Significant for diabetes mellitus type 2, hypertension, hyperlipidemia, ischemic cardiomyopathy, chronic systolic congestive heart failure, although his last left ventricular ejection fraction on his echocardiogram last month showed a preserved left ventricular ejection fraction. He has coronary artery disease; oropharyngeal dysphagia, maintained on PEG tube feedings. He had the numerous masses seen on an MRI of the brain in 11/2018, although was not biopsied, was suspicious rather multiforme glioblastoma or metastatic disease, although he has no primary lung cancer noted. I believe he had a CAT scan of the abdomen and pelvis done at that time and there was no tumor seen. In addition, he was started on anti-seizure medications just for seizure prophylaxis. He has a permanent pacemaker/AICD, diabetic peripheral neuropathy, obstructive sleep apnea, osteoarthritis of the right knee. He had a cecal arteriovenous malformation treated with cautery in 2006, left total knee arthroplasty in 2003, tonsillectomy, and anal fissure repair. He has benign prostatic hypertrophy. SOCIAL HISTORY: He resides in a residential facility and he quit smoking many years ago. He does have a history of alcohol consumption in the past, but not recently. FAMILY HISTORY: Unremarkable, perhaps father and sister had diabetes mellitus. REVIEW OF SYSTEMS: Unobtainable as the patient is unresponsive. PHYSICAL EXAMINATION: VITAL SIGNS: Temperature is 96.9 degrees, pulse regular at 85, respiratory rate was 36, blood pressure is 147/83, oxygen saturation 100% on a nonrebreather facemask. HEENT: Eyes, he opens the left eye and I cannot retract the eyelids on the right ____ right eye tear. He does not track with his eyes. Gaze is conjugate. Mouth is symmetrical. He has a face mask on. He is on a nonrebreather oxygen mask. HEART: Reveals an S1, S2. There is no S3 or murmur. LUNGS: Clear anteriorly. Decreased breath sounds in the left lung anteriorly. ABDOMEN: Soft. He has got a gastrostomy tube. Bowel sounds are somewhat decreased, but positive. Abdomen is not distended. EXTREMITIES: Lower extremities without edema. Dorsalis pedis pulses are 2+ bilaterally. SKIN: No rashes. NEUROLOGIC: Unresponsive. He does not track with his eyes. There are no movements of his arm or legs. He has got spasticity in the left upper extremity. Examination of his in terms of edema, he has got 2 to 3+ edema in the left upper extremity and 1+ edema in the lower extremities. n LABORATORY DATA: Review of the laboratory tests, the white count was 6.9; hemoglobin 8.3 yesterday, 7.7 this morning; platelet count this morning 238,000, 72 polys and 18 lymphocytes. INR of 1.1. Sodium 145, potassium 4.6, chloride 105, total CO2 of 32, BUN 25, creatinine 1.1, blood sugar 161. Lactic acid level is 1.5. Liver function tests were normal. Troponin level less than 0.017. Albumin 2.0. Urinalysis showed too numerous to count white cells and 1-2 red blood cells. His Dilantin level was 1.4. He had a chest x-ray done, which showed near complete opacification of left lung, likely secondary to large pleural effusion. Mucous plugging was also a possibility. Superimposed pneumonia cannot be ruled out. Pulmonary vascularity was normal and he did have some stable cardiomegaly. I did not see an electrocardiogram on the chart. ASSESSMENT: 1. Witnessed aspiration. Certainly need to rule out aspiration pneumonia, although he is afebrile and his white count was normal. 2. Near opacification of the left lung, which could be secondary to a mucus plug versus a pleural effusion. 3. Acute hypoxic and hypercarbic respiratory failure. 4. Brain masses. 5. Encephalopathy. 6. Diabetes mellitus type 2. 7. Hypertension. 8. Hyperlipidemia. 9. Obstructive sleep apnea. 10. Paroxysmal atrial fibrillation. 11. Anemia of chronic disease. 12. Severe calorie malnutrition. 13. Coronary artery disease. PLAN: At this time is to consult Dr. Trujillo and we will also consult Dr. Ferny Pedroza for Infectious Disease. We will continue with IV vancomycin and Zosyn, wait for his blood and urine cultures, get a CAT scan of the chest to see if there is fluid overload. He will need to be evaluated for a bronchoscopy if he has got a central mucous plug. He is a do not resuscitate, but the family does not want to be aggressive in terms of administering antibiotics. They realize the prognosis is poor, but they are holding on a glimmer of hope as I mentioned. We will put him on IV fluids, hold off on the tube feedings, elevate the head of bed, put him on Lovenox for deep vein thrombosis prophylaxis, turn him in bed frequently. Heel protectors have been ordered. Consider tube feedings tomorrow. We will continue the Decadron and seizure medications including his Keppra. His prognosis is poor and continue nebulizer treatments. PHIL VILLARREAL MD DR: LUPIS/juana JOB#: [id number] / [id number]
[2019-01-20] MEDS: ENOXAPARIN 40 MG/0.4 ML SYRINGE. SQ SCH (17:24)
[2019-01-20] MEDS: FUROSEMIDE 40 MG TABLET. PEG SCH (17:24)
[2019-01-20] MEDS: IV 1/2 NORMAL SALINE 1,000 ML IV SCH (17:37)
--- NOTE | 2019-01-20 17:58 | PDOC ---
Infectious Disease Note Vital Sign Vital Signs Vital Signs Date Time Temp Pulse Resp B/P (MAP) Pulse Ox O2 Delivery O2 Flow Rate FiO2 01/20/19 17:24 85 159/82 01/20/19 17:00 30 100 Nasal Cannula 5.0 01/20/19 16:00 97.9 97.9 Labs Lab Laboratory Tests Test 01/19/19 19:40 01/19/19 23:39 01/20/19 06:06 01/20/19 08:15 White Blood Count 6.9 x10^3/uL (4.0-11.0) 6.9 x10^3/uL (4.0-11.0) Red Blood Count 2.73 x10^6/uL (4.30-5.70) 2.55 x10^6/uL (4.30-5.70) Hemoglobin 8.3 g/dL (13.0-17.5) 7.7 g/dL (13.0-17.5) Hematocrit 24.9 % (39.0-53.0) 23.3 % (39.0-53.0) Mean Corpuscular Volume 91 fL (79-100) 91 fL (79-100) Mean Corpuscular Hemoglobin 31 pg (25-35) 30 pg (25-35) Mean Corpuscular Hemoglobin Concent 34 g/dL (31-37) 33 g/dL (31-37) Red Cell Distribution Width 17.1 % (11.5-14.5) 16.7 % (11.5-14.5) Platelet Count 283 x10^3/uL (140-400) 238 x10^3/uL (140-400) Neutrophils (%) (Auto) 71 % (31-73) 72 % (31-73) Lymphocytes (%) (Auto) 20 % (24-48) 18 % (24-48) Monocytes (%) (Auto) 7 % (0-9) 8 % (0-9) Eosinophils (%) (Auto) 1 % (0-3) 1 % (0-3) Basophils (%) (Auto) 1 % (0-3) 1 % (0-3) Neutrophils # (Auto) 4.9 x10^3/uL (1.8-7.7) 4.9 x10^3/uL (1.8-7.7) Lymphocytes # (Auto) 1.4 x10^3/uL (1.0-4.8) 1.2 x10^3/uL (1.0-4.8) Monocytes # (Auto) 0.5 x10^3/uL (0.0-1.1) 0.6 x10^3/uL (0.0-1.1) Eosinophils # (Auto) 0.1 x10^3/uL (0.0-0.7) 0.1 x10^3/uL (0.0-0.7) Basophils # (Auto) 0.1 x10^3/uL (0.0-0.2) 0.1 x10^3/uL (0.0-0.2) Prothrombin Time 13.9 SEC (11.7-14.0) Prothromb Time International Ratio 1.1 (0.8-1.1) Urine Color Yellow Urine Clarity Clear Urine pH 8.5 Urine Specific [place] 1.020 Urine Protein 100 mg/dL (NEG-TRACE) Urine Glucose (UA) Negative mg/dL (NEG) Urine Ketones (Stick) Negative mg/dL (NEG) Urine Blood Small (NEG) Urine Nitrite Negative (NEG) Urine Bilirubin Negative (NEG) Urine Urobilinogen Dipstick 0.2 mg/dL (0.2 mg/dL) Urine Leukocyte Esterase Large (NEG) Urine RBC 1-2 /HPF (0-2) Urine WBC Tntc /HPF (0-4) Urine Squamous Epithelial Cells Occ /LPF Urine Bacteria Few /HPF (0-FEW) Urine Mucus Slight /LPF Sodium Level 145 mmol/L (136-145) 145 mmol/L (136-145) Potassium Level 4.6 mmol/L (3.5-5.1) 4.3 mmol/L (3.5-5.1) Chloride Level 105 mmol/L (98-107) 107 mmol/L (98-107) Carbon Dioxide Level 32 mmol/L (21-32) 34 mmol/L (21-32) Anion Gap 8 (6-14) 4 (6-14) Blood Urea Nitrogen 25 mg/dL (8-26) 23 mg/dL (8-26) Creatinine 1.1 mg/dL (0.7-1.3) 1.1 mg/dL (0.7-1.3) Estimated GFR (Cockcroft-Gault) 77.0 77.0 BUN/Creatinine Ratio 23 (6-20) Glucose Level 161 mg/dL (70-99) 168 mg/dL (70-99) Lactic Acid Level 1.5 mmol/L (0.4-2.0) Calcium Level 9.4 mg/dL (8.5-10.1) 9.4 mg/dL (8.5-10.1) Total Bilirubin 0.4 mg/dL (0.2-1.0) Aspartate Amino Transf (AST/SGOT) 18 U/L (15-37) Alanine Aminotransferase (ALT/SGPT) 14 U/L (16-63) Alkaline Phosphatase 108 U/L (46-116) Troponin I Quantitative < 0.017 ng/mL (0.000-0.055) DC-Xjz-A-Type Natriuretic Peptide 5048 pg/mL (0-449) Total Protein 5.9 g/dL (6.4-8.2) Albumin 2.0 g/dL (3.4-5.0) Albumin/Globulin Ratio 0.5 (1.0-1.7) Procalcitonin 0.22 ng/mL (0.00-0.10) Glucose (Fingerstick) 124 mg/dL (70-99) 144 mg/dL (70-99) Phenytoin (Dilantin) Level 1.4 mcg/mL (10.0-20.0) Phenytoin Last Dose Date Phenytoin Last Dose Time 2044 Objective Assessment Aspiration. UTI, POA Allergy to TETRA Vomiting Acute respiratory failure Presumed brain cancer Encephalopathy Seizure disorder. Diabetes mellitus 2. h/o atrial fibrillation. Plan Plan of Care Continue empiric Zosyn stop the vanc Hold TF f/u cultures Await pulm follow-up D/w nursing Thank you [phone] Patient seen and examined. Chart reviewed in detail. Case discussed with CASSANDRA CONSULTANT. Agree with above plan. ABHINAV CALLE APRN Jan 20, 2019 17:58 DELORIS LOYA MD Jan 20, 2019 20:29
[2019-01-20] MEDS: MORPHINE SULFATE 20 MG/ML CONC SOLUTION. SL PRN ×2 (18:07→21:53)
--- NOTE | 2019-01-20 18:27 | CONS ---
DATE OF CONSULTATION: HISTORY OF PRESENT ILLNESS: [facility] for [facility] distress and vomiting. A chest x-ray showed near complete opacification of the left lung. A followup chest CT showed atelectasis with mediastinal shift to the left, suggestive of obstructive etiology within the left main stem bronchus. No fevers were reported and he had a normal white blood cell count. He was dosed empirically with vancomycin and Zosyn. PAST MEDICAL HISTORY: Presumed brain cancer, left hemiparesis, seizure disorder, diabetes mellitus type 2, hypertension, hyperlipidemia, ischemic cardiomyopathy, chronic systolic congestive heart failure, coronary artery disease, oropharyngeal dysphagia, peripheral neuropathy, obstructive sleep apnea, osteoarthritis of the right knee, cecal arteriovenous malformation, benign prostatic hypertrophy, history of atrial fibrillation. PAST SURGICAL HISTORY: Left total knee arthroplasty, tonsillectomy, anal fissure repair, pacemaker/AICD placement, PEG tube placement. SOCIAL HISTORY: The patient resides in a longterm facility. He is a former smoker. FAMILY HISTORY: Positive for diabetes. ALLERGIES: TETRACYCLINE, UNKNOWN REACTION. MEDICATIONS: Include vancomycin and Zosyn. Other medications are available and have been reviewed on the MAR. REVIEW OF SYSTEMS: Unobtainable as the patient is noncommunicative. PHYSICAL EXAMINATION: VITAL SIGNS: Temperature is 97.9, blood pressure 159/82, heart rate 85, respiratory rate 30, pulse oximetry is 100% on 5 liters oxygen. BMI 26. GENERAL: The patient is propped up in bed. His eyes are open, but unresponsive to verbal stimuli. HEENT: Pupils equal. Oral cavity moist. NECK: Supple. LUNGS: Coarse. HEART: S1 and S2. Pacemaker. ABDOMEN: Obese, soft. No guarding. PEG tube intact. GENITOURINARY: Cobos in place. EXTREMITIES: No gross edema or cyanosis. SKIN: Warm to touch. No signs of rash. NEUROLOGIC: His eyes are open. He does not respond to questions. Some resistance met with moving his right arm. Left EJ looks okay. LABORATORY DATA: Today's WBC 6.9, hemoglobin 7.7, platelets 238,000. Electrolytes are unremarkable. Sodium 145, potassium 4.3, creatinine 1.1, BUN 23, glucose 168. Lactic acid 1.5, total bilirubin 0.4, AST 18, ALT 14. Troponin less than 0.017, albumin 2.0. Procalcitonin 0.22. BNP 5048. Phenytoin level 1.4. Urinalysis showed wbc's too numerous to count, large leukocyte esterase, few bacteria. Urine and blood cultures are pending. IMAGING: Per HPI. IMPRESSION: 1. Aspiration. 2. Urinary tract infection present on admission. 3. ALLERGY TO TETRACYCLINE, REACTION UNKNOWN. 4. Vomiting. 5. Acute respiratory failure. 6. Presumed brain cancer. 7. Encephalopathy. 8. Seizure disorder. 9. Diabetes mellitus type 2. 10. History of atrial fibrillation. PLAN: Continue empiric Zosyn. We will discontinue the vancomycin. Hold tube feedings. We will follow up on culture results. Continue to monitor labs and vital signs. Would favor comfort care. Thank you, Dr. Fitzpatrick for asking us to participate in this patient's care. Should you have further questions or concerns, please call. DELORIS LOYA MD DR: KAREN/juana JOB#: [id number] / [id number]
[2019-01-20] MEDS ORDERED: ATORVASTATIN CALCIUM 40 MG TABLET. PEG SCH (21:00)
[2019-01-20] MEDS: FAMOTIDINE 20 MG TABLET. PO SCH (22:07)
[2019-01-21] VITALS (14 sets, daily range): BP systolic 134–173; BP diastolic 53–77
[2019-01-21] MEDS: PIPERACILLIN/TAZOBACTAM 3.375 GM in IV NORMAL SALINE 50ML 50 ML IV SCH ×5 (00:01→23:49)
--- NOTE | 2019-01-21 02:46 | CONS ---
DATE OF CONSULTATION: 01/20/2019 REFERRING PHYSICIAN: Daniel Fitzpatrick MD REASON FOR CONSULTATION: Pneumonia. HISTORY OF PRESENT ILLNESS: This patient is an 83-year-old -[place]ir[place] male, encephalopathic, unable to provide history of present illness, past medical history or review of systems. According to the medical record, he has a known large right brain mass, presumably cancer, left hemiparesis, maintained on tube feedings and requiring total care. He was sent to the ER from custodial. Dictation Ends Here. DELORIS LOYA MD DR: JAVIER/juana JOB#: [id number] / [id number]
--- NOTE | 2019-01-21 07:09 | PDOC ---
PULMONARY PROGRESS NOTES Subjective PT UNRESPONSIVE NO RESP DISTRESS OBSERVED Vitals Vital Signs Date Time Temp Pulse Resp B/P (MAP) Pulse Ox O2 Delivery O2 Flow Rate FiO2 01/21/19 06:00 83 21 150/75 (100) 100 Nasal Cannula 4.0 01/21/19 04:00 97.6 97.6 Lungs: Clear Cardiovascular: S1, S2 Abdomen: Soft, Non-tender, Other Extremities: Other Skin: Warm Labs Laboratory Tests Test 01/19/19 19:40 01/19/19 23:30 01/19/19 23:39 01/20/19 06:06 White Blood Count 6.9 x10^3/uL (4.0-11.0) Red Blood Count 2.73 x10^6/uL (4.30-5.70) Hemoglobin 8.3 g/dL (13.0-17.5) Hematocrit 24.9 % (39.0-53.0) Mean Corpuscular Volume 91 fL (79-100) Mean Corpuscular Hemoglobin 31 pg (25-35) Mean Corpuscular Hemoglobin Concent 34 g/dL (31-37) Red Cell Distribution Width 17.1 % (11.5-14.5) Platelet Count 283 x10^3/uL (140-400) Neutrophils (%) (Auto) 71 % (31-73) Lymphocytes (%) (Auto) 20 % (24-48) Monocytes (%) (Auto) 7 % (0-9) Eosinophils (%) (Auto) 1 % (0-3) Basophils (%) (Auto) 1 % (0-3) Neutrophils # (Auto) 4.9 x10^3/uL (1.8-7.7) Lymphocytes # (Auto) 1.4 x10^3/uL (1.0-4.8) Monocytes # (Auto) 0.5 x10^3/uL (0.0-1.1) Eosinophils # (Auto) 0.1 x10^3/uL (0.0-0.7) Basophils # (Auto) 0.1 x10^3/uL (0.0-0.2) Prothrombin Time 13.9 SEC (11.7-14.0) Prothromb Time International Ratio 1.1 (0.8-1.1) Urine Color Yellow Urine Clarity Clear Urine pH 8.5 Urine Specific [place] 1.020 Urine Protein 100 mg/dL (NEG-TRACE) Urine Glucose (UA) Negative mg/dL (NEG) Urine Ketones (Stick) Negative mg/dL (NEG) Urine Blood Small (NEG) Urine Nitrite Negative (NEG) Urine Bilirubin Negative (NEG) Urine Urobilinogen Dipstick 0.2 mg/dL (0.2 mg/dL) Urine Leukocyte Esterase Large (NEG) Urine RBC 1-2 /HPF (0-2) Urine WBC Tntc /HPF (0-4) Urine Squamous Epithelial Cells Occ /LPF Urine Bacteria Few /HPF (0-FEW) Urine Mucus Slight /LPF Sodium Level 145 mmol/L (136-145) Potassium Level 4.6 mmol/L (3.5-5.1) Chloride Level 105 mmol/L (98-107) Carbon Dioxide Level 32 mmol/L (21-32) Anion Gap 8 (6-14) Blood Urea Nitrogen 25 mg/dL (8-26) Creatinine 1.1 mg/dL (0.7-1.3) Estimated GFR (Cockcroft-Gault) 77.0 BUN/Creatinine Ratio 23 (6-20) Glucose Level 161 mg/dL (70-99) Lactic Acid Level 1.5 mmol/L (0.4-2.0) Calcium Level 9.4 mg/dL (8.5-10.1) Total Bilirubin 0.4 mg/dL (0.2-1.0) Aspartate Amino Transf (AST/SGOT) 18 U/L (15-37) Alanine Aminotransferase (ALT/SGPT) 14 U/L (16-63) Alkaline Phosphatase 108 U/L (46-116) Troponin I Quantitative < 0.017 ng/mL (0.000-0.055) XX-Abq-G-Type Natriuretic Peptide 5048 pg/mL (0-449) Total Protein 5.9 g/dL (6.4-8.2) Albumin 2.0 g/dL (3.4-5.0) Albumin/Globulin Ratio 0.5 (1.0-1.7) Procalcitonin 0.22 ng/mL (0.00-0.10) Nasal Screen MRSA (PCR) Negative (Negative) Glucose (Fingerstick) 124 mg/dL (70-99) 144 mg/dL (70-99) Test 01/20/19 08:15 01/20/19 22:58 White Blood Count 6.9 x10^3/uL (4.0-11.0) Red Blood Count 2.55 x10^6/uL (4.30-5.70) Hemoglobin 7.7 g/dL (13.0-17.5) Hematocrit 23.3 % (39.0-53.0) Mean Corpuscular Volume 91 fL (79-100) Mean Corpuscular Hemoglobin 30 pg (25-35) Mean Corpuscular Hemoglobin Concent 33 g/dL (31-37) Red Cell Distribution Width 16.7 % (11.5-14.5) Platelet Count 238 x10^3/uL (140-400) Neutrophils (%) (Auto) 72 % (31-73) Lymphocytes (%) (Auto) 18 % (24-48) Monocytes (%) (Auto) 8 % (0-9) Eosinophils (%) (Auto) 1 % (0-3) Basophils (%) (Auto) 1 % (0-3) Neutrophils # (Auto) 4.9 x10^3/uL (1.8-7.7) Lymphocytes # (Auto) 1.2 x10^3/uL (1.0-4.8) Monocytes # (Auto) 0.6 x10^3/uL (0.0-1.1) Eosinophils # (Auto) 0.1 x10^3/uL (0.0-0.7) Basophils # (Auto) 0.1 x10^3/uL (0.0-0.2) Sodium Level 145 mmol/L (136-145) Potassium Level 4.3 mmol/L (3.5-5.1) Chloride Level 107 mmol/L (98-107) Carbon Dioxide Level 34 mmol/L (21-32) Anion Gap 4 (6-14) Blood Urea Nitrogen 23 mg/dL (8-26) Creatinine 1.1 mg/dL (0.7-1.3) Estimated GFR (Cockcroft-Gault) 77.0 Glucose Level 168 mg/dL (70-99) Calcium Level 9.4 mg/dL (8.5-10.1) Phenytoin (Dilantin) Level 1.4 mcg/mL (10.0-20.0) Phenytoin Last Dose Date Phenytoin Last Dose Time 2044 Glucose (Fingerstick) 133 mg/dL (70-99) Laboratory Tests Test 01/20/19 08:15 01/20/19 22:58 White Blood Count 6.9 x10^3/uL (4.0-11.0) Red Blood Count 2.55 x10^6/uL (4.30-5.70) Hemoglobin 7.7 g/dL (13.0-17.5) Hematocrit 23.3 % (39.0-53.0) Mean Corpuscular Volume 91 fL (79-100) Mean Corpuscular Hemoglobin 30 pg (25-35) Mean Corpuscular Hemoglobin Concent 33 g/dL (31-37) Red Cell Distribution Width 16.7 % (11.5-14.5) Platelet Count 238 x10^3/uL (140-400) Neutrophils (%) (Auto) 72 % (31-73) Lymphocytes (%) (Auto) 18 % (24-48) Monocytes (%) (Auto) 8 % (0-9) Eosinophils (%) (Auto) 1 % (0-3) Basophils (%) (Auto) 1 % (0-3) Neutrophils # (Auto) 4.9 x10^3/uL (1.8-7.7) Lymphocytes # (Auto) 1.2 x10^3/uL (1.0-4.8) Monocytes # (Auto) 0.6 x10^3/uL (0.0-1.1) Eosinophils # (Auto) 0.1 x10^3/uL (0.0-0.7) Basophils # (Auto) 0.1 x10^3/uL (0.0-0.2) Sodium Level 145 mmol/L (136-145) Potassium Level 4.3 mmol/L (3.5-5.1) Chloride Level 107 mmol/L (98-107) Carbon Dioxide Level 34 mmol/L (21-32) Anion Gap 4 (6-14) Blood Urea Nitrogen 23 mg/dL (8-26) Creatinine 1.1 mg/dL (0.7-1.3) Estimated GFR (Cockcroft-Gault) 77.0 Glucose Level 168 mg/dL (70-99) Calcium Level 9.4 mg/dL (8.5-10.1) Phenytoin (Dilantin) Level 1.4 mcg/mL (10.0-20.0) Phenytoin Last Dose Date Phenytoin Last Dose Time 2044 Glucose (Fingerstick) 133 mg/dL (70-99) Medications Active Scripts Medications Dose Route/Sig Max Daily Dose Days Date Category Dose Instructions Potassium Chloride Oral Liquid (Potassium Chloride) 20 Meq/15 Ml Liquid 20 Meq PEG BID 01/19/19 Reported Phenytoin 125 Mg/5 Ml Oral.susp 10 Ml PEG BID 01/19/19 Reported Lasix (Furosemide) 40 Mg Tablet 1 Tab PO DAILY 01/19/19 Reported Levetiracetam 100 Mg/1 Ml Solution 10 Ml PEG BID 01/19/19 Reported Ferosul (Ferrous Sulfate) 220 Mg/5 Ml Solution 7.5 Ml PEG DAILY 01/19/19 Reported Docusate Sodium 50 Mg/5 Ml Liquid 10 Ml PEG BID 01/19/19 Reported Cefpodoxime Proxetil 200 Mg Tablet 1 Tab PO Q12HR 01/19/19 Reported Amlodipine Besylate 5 Mg Tablet 5 Mg PEG DAILY 30 01/08/19 Rx Humalog (Insulin Lispro) 100 Unit/1 Ml Insuln.pen 0 Units SQ Q6HRS 01/07/19 Rx humalog sliding scale every 6 hours while on tube feeding BS 155- 199=1 units humalog 200-299=2 units 300-399=4 units 400-499=6 units Dexamethasone 1 Mg Tablet 2 Mg PEG DAILY 01/07/19 Rx Prevacid (Lansoprazole) 30 Mg Tab.rap.dr 30 Mg FT DAILY 01/07/19 Rx Transderm-Scop (Scopolamine) 1 Each Patch.td72 1 Patch TD Q3DAYS 01/07/19 Rx Ativan (Lorazepam) 0.5 Mg Tablet 0.5 Mg PEG PRN Q6HRS PRN 01/07/19 Rx Morphine Sulfate 100 Mg/5 Ml Solution 5 Mg SL PRN Q1HR PRN 01/07/19 Rx Carvedilol (Carvedilol) 3.125 Mg Tablet 3.125 Mg PEG BID 01/07/19 Rx Atorvastatin Calcium 40 Mg Tablet 40 Mg PEG QHS 01/07/19 Rx Comments IMPRESSION: 1. Atelectasis of the left lung with mediastinal shift to the left. Findings are suggestive of obstructive etiology within the left mainstem bronchus. Bronchoscopy may be of benefit for further evaluation and to assess for underlying neoplastic etiology. 2. Mild cardiomegaly with three-vessel coronary artery vascular calcifications. 3. Cholelithiasis. Impression . IMPRESSION: 1. Acute hypoxemic respiratory failure. 2. Aspiration pneumonia/Post obstructive pneumonia 3. Abnormal x-ray. 4. Presumptive diagnosis of brain cancer, possibly metastatic disease. 5. Sdfmu-cy-arzidga metabolic encephalopathy/toxic encephalopathy. 6. Type 2 diabetes. 7. Hypertension. 8. Chronic anemia. 9. Presumptive bronchogenic carcinoma IMPRESSION: 1. Atelectasis of the left lung with mediastinal shift to the left. Findings are suggestive of obstructive etiology within the left mainstem bronchus. Bronchoscopy may be of benefit for further evaluation and to assess for underlying neoplastic etiology. 2. Mild cardiomegaly with three-vessel coronary artery vascular calcifications. 3. Cholelithiasis. Plan . CT REVIEWED PT AT HIGH RISK FOR BRONCHOSCOPY NOT A CANDIDATE FOR TREATMENT I WOULD FAVOR PALLIATIVE CARE AND HOSPICE NO FAMILY AT BEDSIDE TRANSFER OUT OF ICU ANITBX PER ID CASI EARLY MD Jan 21, 2019 07:09
[2019-01-21] MEDS: FERROUS SULFATE ORAL 300 MG/5 ML SOLUTION. PEG SCH (07:36)
[2019-01-21] MEDS: FUROSEMIDE 40 MG TABLET. PEG SCH (07:36)
[2019-01-21] MEDS: DEXAMETHASONE 1 MG TABLET PEG SCH (07:37)
[2019-01-21] MEDS: amLODIPine BESYLATE 5 MG TABLET PEG SCH (07:37)
[2019-01-21] MEDS: FAMOTIDINE 20 MG TABLET. PO SCH (07:37)
[2019-01-21] MEDS: POTASSIUM BICARB 20 MEQ EFFERVESCENT TABLET. PEG SCH (07:37)
[2019-01-21] MEDS: INSULIN LISPRO 300 UNITS/3 ML INSULN.PEN. SQ SCH ×3 (07:38→16:46)
[2019-01-21] MEDS: CARVEDILOL 3.125 MG TABLET. PEG SCH (07:38)
[2019-01-21] MEDS: DOCUSATE 100 MG/10 ML SOLUTION. PEG SCH ×2 (07:40→21:12)
--- NOTE | 2019-01-21 07:40 | PDOC ---
Infectious Disease Note Subjective Subjective Noncommunicative Satting 100% on 2L O2 No fevers last 24 hours No further vomiting Peg to low intermittent suction ROS ROS unobtainable Vital Sign Vital Signs Vital Signs Date Time Temp Pulse Resp B/P (MAP) Pulse Ox O2 Delivery O2 Flow Rate FiO2 01/21/19 07:00 90 17 134/68 (90) 100 Nasal Cannula 2.0 01/21/19 04:00 97.6 97.6 Physical Exam PHYSICAL EXAM GENERAL: Propped up in bed, appears comfortable HEENT: Small pupils equal. LUNGS: Improved aeration, less coarse HEART: S1 and S2. Pacemaker. ABDOMEN: Obese, soft. No guarding. PEG tube GENITOURINARY: Cobos in place. EXTREMITIES: Trace edema lower extremities, bilaterally. No cyanosis. SKIN: Warm to touch. No signs of rash. NEUROLOGIC: Opens eyes to gentle stimuli, noncommunicative. Labs Lab Laboratory Tests Test 01/20/19 08:15 01/20/19 22:58 White Blood Count 6.9 x10^3/uL (4.0-11.0) Red Blood Count 2.55 x10^6/uL (4.30-5.70) Hemoglobin 7.7 g/dL (13.0-17.5) Hematocrit 23.3 % (39.0-53.0) Mean Corpuscular Volume 91 fL (79-100) Mean Corpuscular Hemoglobin 30 pg (25-35) Mean Corpuscular Hemoglobin Concent 33 g/dL (31-37) Red Cell Distribution Width 16.7 % (11.5-14.5) Platelet Count 238 x10^3/uL (140-400) Neutrophils (%) (Auto) 72 % (31-73) Lymphocytes (%) (Auto) 18 % (24-48) Monocytes (%) (Auto) 8 % (0-9) Eosinophils (%) (Auto) 1 % (0-3) Basophils (%) (Auto) 1 % (0-3) Neutrophils # (Auto) 4.9 x10^3/uL (1.8-7.7) Lymphocytes # (Auto) 1.2 x10^3/uL (1.0-4.8) Monocytes # (Auto) 0.6 x10^3/uL (0.0-1.1) Eosinophils # (Auto) 0.1 x10^3/uL (0.0-0.7) Basophils # (Auto) 0.1 x10^3/uL (0.0-0.2) Sodium Level 145 mmol/L (136-145) Potassium Level 4.3 mmol/L (3.5-5.1) Chloride Level 107 mmol/L (98-107) Carbon Dioxide Level 34 mmol/L (21-32) Anion Gap 4 (6-14) Blood Urea Nitrogen 23 mg/dL (8-26) Creatinine 1.1 mg/dL (0.7-1.3) Estimated GFR (Cockcroft-Gault) 77.0 Glucose Level 168 mg/dL (70-99) Calcium Level 9.4 mg/dL (8.5-10.1) Phenytoin (Dilantin) Level 1.4 mcg/mL (10.0-20.0) Phenytoin Last Dose Date Phenytoin Last Dose Time 2044 Glucose (Fingerstick) 133 mg/dL (70-99) Micro Microbiology 01/19/19 Blood Culture - Preliminary, Resulted NO GROWTH AFTER 1 DAY Objective Assessment Aspiration. UTI, POA Allergy to TETRA Vomiting Acute respiratory failure. abnormal chest CT Presumed brain cancer Encephalopathy Seizure disorder. Diabetes mellitus 2. Hypertension h/o atrial fibrillation. Plan Plan of Care Continue empiric Zosyn Today's labs pending BC neg so far D/w nursing Patient seen and examined. Chart reviewed in detail. Case discussed with LABEL PRINTING MACHINIST. Agree with above plan. ABHINAV CALLE APRN Jan 21, 2019 07:40 DELORIS LOYA MD Jan 21, 2019 16:36
[2019-01-21] MEDS: IV 1/2 NORMAL SALINE 1,000 ML IV SCH (07:41)
[2019-01-21] MEDS: ALBUTEROL SULFATE 2.5 MG/3 ML NEBU. NEB SCH ×5 (08:23→20:20)
[2019-01-21 10:14] LABS: BASO % 1 % (0-3); EOS # 0.1 x10^3/uL (0.0-0.7); EOS % 2 % (0-3); HEMATOCRIT 22.4 % (39.0-53.0); HEMOGLOBIN 7.6 g/dL (13.0-17.5); LYMPH % 18 % (24-48); MEAN CORPUSCULAR HEMOGLOBIN 31 pg (25-35); MEAN CORPUSCULAR HGB CONC 34 g/dL (31-37); MEAN CORPUSCULAR VOLUME 91 fL (79-100); MONO # 0.4 x10^3/uL (0.0-1.1); MONO % 7 % (0-9); NEUT # 3.8 x10^3/uL (1.8-7.7); NEUT % 72 % (31-73); PLATELET COUNT 291 x10^3/uL (140-400); RED BLOOD COUNT 2.45 x10^6/uL (4.30-5.70); RED CELL DISTRIBUTION WIDTH 16.8 % (11.5-14.5); WHITE BLOOD COUNT 5.4 x10^3/uL (4.0-11.0)
[2019-01-21 10:22] LABS: CALCIUM 9.1 mg/dL (8.5-10.1); CREATININE 1.1 mg/dL (0.7-1.3); POTASSIUM 4.5 mmol/L (3.5-5.1)
[2019-01-21 10:30] LABS: VANC TR 21.5 mcg/mL (10.0-20.0)
[2019-01-21] MEDS ORDERED: hydrALAZINE 20 MG/ML VIAL. IVP PRN (11:00)
[2019-01-21] MEDS ORDERED: METOCLOPRAMIDE HCL 10 MG/2 ML VIAL. IV PRN (11:00)
[2019-01-21] MEDS ORDERED: MORPHINE SULFATE 2 MG/ML VIAL. IV PRN (11:00)
--- NOTE | 2019-01-21 11:54 | RAD ---
Abdominal radiograph 01/21/2019 INDICATION: Poor gastric emptying. COMPARISON: CT abdomen/pelvis January 14, 2016. TECHNIQUE: Single supine view of abdomen is provided. FINDINGS: Supine technique limits evaluation for free intraperitoneal air. Surgical clips project over the left upper abdomen. There are no dilated loops of small or large bowel. No definite pneumatosis coli or portal venous gas. No suspicious calcifications along the genitourinary tract. Extensive hardware is identified within the pelvis with 2 partially cannulated screws traversing the left sacroiliac joint. Malleable plate and screw is identified along the superior pubic rami with fusion of the pubic symphysis. Malleable plates are identified along the right superior iliac bone. No suspicious osseous abnormality. IMPRESSION: Nonobstructive bowel gas pattern. Electronically signed by: Maryjo Vidal MD (01/21/2019 11:51 AM) [facility]
--- NOTE | 2019-01-21 11:56 | PDOC ---
PROGRESS NOTES Subjective Subjective ct scan of chest showed evidence of obstruction of left mainstem bronchus. with a whiter out of left lung and only a small pleural effusion. afebrile . oxygenating okay. wbc okay. he has poor emptying ot stomach. will start iv reglan and hold off on TF and increase iv fluids and give meds IV. Objective Objective Vital Signs Date Time Temp Pulse Resp B/P (MAP) Pulse Ox O2 Delivery O2 Flow Rate FiO2 01/21/19 11:42 100 Room Air 01/21/19 08:00 2.0 01/21/19 08:00 89 19 136/66 (89) 01/21/19 04:00 97.6 97.6 Intake and Output 01/21/19 07:00 Intake Total 2701.1 ml Output Total 1745 ml Balance 956.1 ml Intake Oral 0 ml IV Total 2701.1 ml Output Urine Total 1145 ml Gastric Drainage Total 600 ml # Bowel Movements 1 Physical Exam Abdomen: Soft, Other (bowel sounds heard) Heart: Regular rate, Normal S1, Normal S2 Extremities: Other (1 plus edema legs and 2 plus edema LUE with spastic LUE) General: Other (unresponsive) HEENT: Atraumatic Lungs: Other (clear on right and decreased breath sounds on left) Neuro: Other (unresponsive) Psych/Mental Status: Other (unresponsive) Skin: No rashes Assessment Assessment Problems1. aspiration 2. Near opacification of the left lung suspect due to aspiration or a mucus plug 3. Acute hypoxic and hypercarbic respiratory failure. 4. Brain masses. cancer suspected 5. Encephalopathy. 6. Diabetes mellitus type 2. 7. Hypertension. 8. Hyperlipidemia. 9. Obstructive sleep apnea. 10. Paroxysmal atrial fibrillation. 11. Anemia of chronic disease. 12. Severe calorie malnutrition. 13. Coronary artery disease. Medical Problems: (1) Urinary tract infection Status: Acute Plan Plan of Care iv zosyn increase iv fluids would recommend a bronchoscopy to clear out left mainstem bronchus as family has not lost hope and declines hospice start iv metoclopramide iv keppra and iv dilantin hold tube feeding KUB Comment Review of Relevant I have reviewed the following items yoko (where applicable) has been applied. Labs Laboratory Tests Test 01/19/19 19:40 01/19/19 23:30 01/19/19 23:39 01/20/19 06:06 White Blood Count 6.9 x10^3/uL (4.0-11.0) Red Blood Count 2.73 x10^6/uL (4.30-5.70) Hemoglobin 8.3 g/dL (13.0-17.5) Hematocrit 24.9 % (39.0-53.0) Mean Corpuscular Volume 91 fL (79-100) Mean Corpuscular Hemoglobin 31 pg (25-35) Mean Corpuscular Hemoglobin Concent 34 g/dL (31-37) Red Cell Distribution Width 17.1 % (11.5-14.5) Platelet Count 283 x10^3/uL (140-400) Neutrophils (%) (Auto) 71 % (31-73) Lymphocytes (%) (Auto) 20 % (24-48) Monocytes (%) (Auto) 7 % (0-9) Eosinophils (%) (Auto) 1 % (0-3) Basophils (%) (Auto) 1 % (0-3) Neutrophils # (Auto) 4.9 x10^3/uL (1.8-7.7) Lymphocytes # (Auto) 1.4 x10^3/uL (1.0-4.8) Monocytes # (Auto) 0.5 x10^3/uL (0.0-1.1) Eosinophils # (Auto) 0.1 x10^3/uL (0.0-0.7) Basophils # (Auto) 0.1 x10^3/uL (0.0-0.2) Prothrombin Time 13.9 SEC (11.7-14.0) Prothromb Time International Ratio 1.1 (0.8-1.1) Urine Color Yellow Urine Clarity Clear Urine pH 8.5 Urine Specific [place] 1.020 Urine Protein 100 mg/dL (NEG-TRACE) Urine Glucose (UA) Negative mg/dL (NEG) Urine Ketones (Stick) Negative mg/dL (NEG) Urine Blood Small (NEG) Urine Nitrite Negative (NEG) Urine Bilirubin Negative (NEG) Urine Urobilinogen Dipstick 0.2 mg/dL (0.2 mg/dL) Urine Leukocyte Esterase Large (NEG) Urine RBC 1-2 /HPF (0-2) Urine WBC Tntc /HPF (0-4) Urine Squamous Epithelial Cells Occ /LPF Urine Bacteria Few /HPF (0-FEW) Urine Mucus Slight /LPF Sodium Level 145 mmol/L (136-145) Potassium Level 4.6 mmol/L (3.5-5.1) Chloride Level 105 mmol/L (98-107) Carbon Dioxide Level 32 mmol/L (21-32) Anion Gap 8 (6-14) Blood Urea Nitrogen 25 mg/dL (8-26) Creatinine 1.1 mg/dL (0.7-1.3) Estimated GFR (Cockcroft-Gault) 77.0 BUN/Creatinine Ratio 23 (6-20) Glucose Level 161 mg/dL (70-99) Lactic Acid Level 1.5 mmol/L (0.4-2.0) Calcium Level 9.4 mg/dL (8.5-10.1) Total Bilirubin 0.4 mg/dL (0.2-1.0) Aspartate Amino Transf (AST/SGOT) 18 U/L (15-37) Alanine Aminotransferase (ALT/SGPT) 14 U/L (16-63) Alkaline Phosphatase 108 U/L (46-116) Troponin I Quantitative < 0.017 ng/mL (0.000-0.055) CX-Pcy-M-Type Natriuretic Peptide 5048 pg/mL (0-449) Total Protein 5.9 g/dL (6.4-8.2) Albumin 2.0 g/dL (3.4-5.0) Albumin/Globulin Ratio 0.5 (1.0-1.7) Procalcitonin 0.22 ng/mL (0.00-0.10) Nasal Screen MRSA (PCR) Negative (Negative) Glucose (Fingerstick) 124 mg/dL (70-99) 144 mg/dL (70-99) Test 01/20/19 08:15 01/20/19 22:58 01/21/19 09:40 White Blood Count 6.9 x10^3/uL (4.0-11.0) 5.4 x10^3/uL (4.0-11.0) Red Blood Count 2.55 x10^6/uL (4.30-5.70) 2.45 x10^6/uL (4.30-5.70) Hemoglobin 7.7 g/dL (13.0-17.5) 7.6 g/dL (13.0-17.5) Hematocrit 23.3 % (39.0-53.0) 22.4 % (39.0-53.0) Mean Corpuscular Volume 91 fL (79-100) 91 fL (79-100) Mean Corpuscular Hemoglobin 30 pg (25-35) 31 pg (25-35) Mean Corpuscular Hemoglobin Concent 33 g/dL (31-37) 34 g/dL (31-37) Red Cell Distribution Width 16.7 % (11.5-14.5) 16.8 % (11.5-14.5) Platelet Count 238 x10^3/uL (140-400) 291 x10^3/uL (140-400) Neutrophils (%) (Auto) 72 % (31-73) 72 % (31-73) Lymphocytes (%) (Auto) 18 % (24-48) 18 % (24-48) Monocytes (%) (Auto) 8 % (0-9) 7 % (0-9) Eosinophils (%) (Auto) 1 % (0-3) 2 % (0-3) Basophils (%) (Auto) 1 % (0-3) 1 % (0-3) Neutrophils # (Auto) 4.9 x10^3/uL (1.8-7.7) 3.8 x10^3/uL (1.8-7.7) Lymphocytes # (Auto) 1.2 x10^3/uL (1.0-4.8) 1.0 x10^3/uL (1.0-4.8) Monocytes # (Auto) 0.6 x10^3/uL (0.0-1.1) 0.4 x10^3/uL (0.0-1.1) Eosinophils # (Auto) 0.1 x10^3/uL (0.0-0.7) 0.1 x10^3/uL (0.0-0.7) Basophils # (Auto) 0.1 x10^3/uL (0.0-0.2) 0.0 x10^3/uL (0.0-0.2) Sodium Level 145 mmol/L (136-145) 144 mmol/L (136-145) Potassium Level 4.3 mmol/L (3.5-5.1) 4.5 mmol/L (3.5-5.1) Chloride Level 107 mmol/L (98-107) 106 mmol/L (98-107) Carbon Dioxide Level 34 mmol/L (21-32) 32 mmol/L (21-32) Anion Gap 4 (6-14) 6 (6-14) Blood Urea Nitrogen 23 mg/dL (8-26) 19 mg/dL (8-26) Creatinine 1.1 mg/dL (0.7-1.3) 1.1 mg/dL (0.7-1.3) Estimated GFR (Cockcroft-Gault) 77.0 77.0 Glucose Level 168 mg/dL (70-99) 121 mg/dL (70-99) Calcium Level 9.4 mg/dL (8.5-10.1) 9.1 mg/dL (8.5-10.1) Phenytoin (Dilantin) Level 1.4 mcg/mL (10.0-20.0) Phenytoin Last Dose Date Phenytoin Last Dose Time 2044 Glucose (Fingerstick) 133 mg/dL (70-99) Vancomycin Level Trough 21.5 mcg/mL (10.0-20.0) Vancomycin Last Dose Date 01/20/19 Vancomycin Last Dose Time 2100 Laboratory Tests Test 01/20/19 22:58 01/21/19 09:40 Glucose (Fingerstick) 133 mg/dL (70-99) White Blood Count 5.4 x10^3/uL (4.0-11.0) Red Blood Count 2.45 x10^6/uL (4.30-5.70) Hemoglobin 7.6 g/dL (13.0-17.5) Hematocrit 22.4 % (39.0-53.0) Mean Corpuscular Volume 91 fL (79-100) Mean Corpuscular Hemoglobin 31 pg (25-35) Mean Corpuscular Hemoglobin Concent 34 g/dL (31-37) Red Cell Distribution Width 16.8 % (11.5-14.5) Platelet Count 291 x10^3/uL (140-400) Neutrophils (%) (Auto) 72 % (31-73) Lymphocytes (%) (Auto) 18 % (24-48) Monocytes (%) (Auto) 7 % (0-9) Eosinophils (%) (Auto) 2 % (0-3) Basophils (%) (Auto) 1 % (0-3) Neutrophils # (Auto) 3.8 x10^3/uL (1.8-7.7) Lymphocytes # (Auto) 1.0 x10^3/uL (1.0-4.8) Monocytes # (Auto) 0.4 x10^3/uL (0.0-1.1) Eosinophils # (Auto) 0.1 x10^3/uL (0.0-0.7) Basophils # (Auto) 0.0 x10^3/uL (0.0-0.2) Sodium Level 144 mmol/L (136-145) Potassium Level 4.5 mmol/L (3.5-5.1) Chloride Level 106 mmol/L (98-107) Carbon Dioxide Level 32 mmol/L (21-32) Anion Gap 6 (6-14) Blood Urea Nitrogen 19 mg/dL (8-26) Creatinine 1.1 mg/dL (0.7-1.3) Estimated GFR (Cockcroft-Gault) 77.0 Glucose Level 121 mg/dL (70-99) Calcium Level 9.1 mg/dL (8.5-10.1) Vancomycin Level Trough 21.5 mcg/mL (10.0-20.0) Vancomycin Last Dose Date 01/20/19 Vancomycin Last Dose Time 2100 Microbiology 01/19/19 Blood Culture - Preliminary, Resulted NO GROWTH AFTER 1 DAY Medications Current Medications Piperacillin Sod/ Tazobactam Sod (Zosyn Per Pharmacy) 1 each PRN DAILY PRN MC SEE COMMENTS; Start 01/19/19 at 20:00 Piperacillin Sod/ Tazobactam Sod 3.375 gm/Sodium Chloride 50 ml @ 100 mls/hr 1X ONCE IV Last administered on 01/19/19at 20:30; Start 01/19/19 at 20:00; Stop 01/19/19 at 20:29; Status DC Albuterol Sulfate (Ventolin Neb Soln) 2.5 mg QID NEB Last administered on 01/21/19at 11:42; Start 01/19/19 at 21:00 Vancomycin HCl 250 ml @ 250 mls/hr 1X ONCE IV ; Start 01/19/19 at 20:45; Stop 01/19/19 at 21:44; Status UNV Vancomycin HCl (Vanco Per Pharmacy) 1 each PRN DAILY PRN MC SEE COMMENTS Last administered on 01/20/19at 05:30; Start 01/19/19 at 20:45; Stop 01/20/19 at 17:58; Status DC Potassium Chloride/Dextrose/ Sod Cl 1,000 ml @ 75 mls/hr 1X ONCE IV ; Start 01/19/19 at 20:45; Stop 01/19/19 at 23:00; Status DC Vancomycin HCl 2 gm/Sodium Chloride 500 ml @ 250 mls/hr 1X ONCE IV Last administered on 01/19/19at 21:10; Start 01/19/19 at 21:00; Stop 01/19/19 at 22:59; Status DC Ondansetron HCl (Zofran) 4 mg PRN Q6HRS PRN IV NAUSEA/VOMITING 1ST CHOICE; Start 01/19/19 at 23:00 Albuterol Sulfate (Ventolin Neb Soln) 2.5 mg PRN Q4HRS PRN NEB SHORTNESS OF BREATH; Start 01/19/19 at 23:00 Dextrose (Dextrose 50%-Water Syringe) 12.5 gm PRN Q15MIN PRN IV SEE COMMENTS; Start 01/19/19 at 23:00; Status Cancel Dextrose 250 ml PRN Q15MIN PRN IV SEE COMMENTS; Start 01/19/19 at 23:00 Potassium Chloride/Dextrose/ Sod Cl 1,000 ml @ 75 mls/hr [id number] IV Last administered on 01/20/19at 00:09; Start 01/20/19 at 00:00; Stop 01/20/19 at 10:29; Status DC Amlodipine Besylate (Norvasc) 5 mg DAILY PEG Last administered on 01/21/19at 07:37; Start 01/20/19 at 09:00; Stop 01/21/19 at 10:59; Status DC Atorvastatin Calcium (Lipitor) 40 mg QHS PEG Last administered on 01/20/19at 21:53; Start 01/20/19 at 21:00; Stop 01/21/19 at 10:59; Status DC Carvedilol (Coreg) 3.125 mg BIDWMEALS PEG Last administered on 01/21/19at 07:38; Start 01/20/19 at 08:00; Stop 01/21/19 at 10:59; Status DC Dexamethasone (Decadron) 2 mg DAILY PEG Last administered on 01/21/19 07:37; Start 01/20/19 at 09:00; Stop 01/21/19 at 10:59; Status DC Docusate Sodium (Colace Solution) 100 mg BID PEG Last administered on 01/21/19at 07:40; Start 01/20/19 at 09:00 Furosemide (Lasix) 40 mg DAILY PEG Last administered on 01/21/19at 07:36; Start 01/20/19 at 09:00; Stop 01/21/19 at 10:59; Status DC Insulin Human Lispro (HumaLOG) Q6HRS SQ ; Start 01/20/19 at 00:00; Stop 01/20/19 at 10:29; Status DC Lansoprazole (Prevacid) 30 mg DAILY FT ; Start 01/20/19 at 09:00; Stop 01/20/19 at 10:03; Status DC Lorazepam (Ativan) 0.5 mg PRN Q6HRS PRN PEG ANXIETY / AGITATION; Start 01/19/19 at 23:15 Non-Formulary Medication (Cefpodoxime Proxetil ) 1 tab Q12HR PO ; Start 01/20/19 at 09:00; Status UNV Ferrous Sulfate (Iron Oral Solution) 300 mg DAILY PEG Last administered on 01/21at 07:36; Start 01/20/19 at 09:00; Stop 01/21/19 at 10:59; Status DC Levetiracetam (Keppra) 1,000 mg BID PEG Last administered on 01/21/19 07:36; Start 01/20/19 at 09:00; Stop 01/21/19 at 10:59; Status DC Morphine Sulfate (Roxanol Conc) 5 mg PRN Q1HR PRN SL AIR HUNGER Last administered on 01/20/19at 21:53; Start 01/19/19 at 23:45; Stop 01/21/19 at 10:59; Status DC Phenytoin Sodium (Dilantin) 250 mg BID PEG ; Start 01/20/19 at 09:00; Stop 01/20/19 at 10:29; Status DC Potassium Bicarbonate (Potassium Effervescent Tablet) 20 meq BID PEG Last administered on 8/4/19at 07:37; Start 01/20/19 at 09:00; Stop 01/21/19 at 10:59; Status DC Scopolamine (Transderm-Scop) 1 patch Q3DAYS TD ; Start 01/22/19 at 09:00 Piperacillin Sod/ Tazobactam Sod 3.375 gm/Sodium Chloride 50 ml @ 100 mls/hr Q6HRS IV Last administered on 01/21/19at 11:38; Start 01/20/19 at 00:00 Vancomycin HCl 1 gm/Sodium Chloride 250 ml @ 250 mls/hr Q12H IV Last administered on 01/20/19at 17:25; Start 01/20/19 at 09:00; Stop 01/20/19 at 17:58; Status DC Pharmacy Consult (C.diff Med Screen By Rx) 1 each 1X ONCE MC ; Start 01/20/19 at 00:00; Stop 01/20/19 at 00:01; Status DC Lactobacillus Rhamnosus (Culturelle) 1 cap BID PO ; Start 01/20/19 at 09:00; Stop 01/20/19 at 09:56; Status DC Vancomycin HCl (Vancomycin Trough Level) 1 each 1X ONCE MC ; Start 01/21/19 at 08:30; Stop 01/21/19 at 08:31; Status Cancel Famotidine (Pepcid) 20 mg BID PO Last administered on 01/21/19at 07:37; Start 01/20/19 at 21:00; Stop 01/21/19 at 10:59; Status DC Sodium Chloride 1,000 ml @ 60 mls/hr [id number] IV Last administered on 01/21/19at 07:41; Start 01/20/19 at 11:00; Stop 01/21/19 at 10:59; Status DC Enoxaparin Sodium (Lovenox 40mg Syringe) 40 mg Q24H SQ Last administered on 01/20/19at 17:24; Start 01/20/19 at 16:00 Acetaminophen (Tylenol) 650 mg PRN Q6HRS PRN PEG MILD PAIN / TEMP; Start 01/20/19 at 10:30 Magnesium Hydroxide (Milk Of Magnesia) 2,400 mg PRN DAILY PRN PEG CONSTIPATION; Start 01/20/19 at 10:30 Insulin Human Lispro (HumaLOG) 0-6 UNITS TIDWMEALS SQ ; Start 01/20/19 at 12:00 Levetiracetam 1000 mg/Dextrose 110 ml @ 440 mls/hr Q12HR IV ; Start 01/21/19 at 21:00 Dexamethasone Sodium Phosphate (Decadron) 2 mg DAILY IV ; Start 01/22/19 at 09:00 Furosemide (Lasix) 20 mg DAILY IVP ; Start 01/22/19 at 09:00 Morphine Sulfate (Morphine Sulfate) 2 mg PRN Q2HR PRN IV AIR HUNGER; Start 01/21/19 at 11:00 Famotidine (Pepcid Vial) 20 mg BID IVP ; Start 01/21/19 at 21:00 Hydralazine HCl (Apresoline Inj) 10 mg PRN Q4HRS PRN IVP ELEVATED BP, SEE COMMENTS; Start 01/21/19 at 11:00 Potassium Chloride/Dextrose/ Sod Cl 1,000 ml @ 75 mls/hr [id number] IV Last administered on 01/21/19at 11:38; Start 01/21/19 at 12:00 Metoclopramide HCl (Reglan Vial) 10 mg PRN Q6HRS PRN IV NAUSEA/VOMITING; Start 01/21/19 at 11:00 Active Scripts Active Amlodipine Besylate 5 Mg Tablet 5 Mg PEG DAILY 30 Days Humalog (Insulin Lispro) 100 Unit/1 Ml Insuln.pen 0 Units SQ Q6HRS humalog sliding scale every 6 hours while on tube feeding BS 155- 199=1 units humalog 200-299=2 units 300-399=4 units 400-499=6 units Dexamethasone 1 Mg Tablet 2 Mg PEG DAILY Prevacid (Lansoprazole) 30 Mg Tab.rap.dr 30 Mg FT DAILY Transderm-Scop (Scopolamine) 1 Each Patch.td72 1 Patch TD Q3DAYS Ativan (Lorazepam) 0.5 Mg Tablet 0.5 Mg PEG PRN Q6HRS PRN Morphine Sulfate 100 Mg/5 Ml Solution 5 Mg SL PRN Q1HR PRN Carvedilol (Carvedilol) 3.125 Mg Tablet 3.125 Mg PEG BID Atorvastatin Calcium 40 Mg Tablet 40 Mg PEG QHS Reported Potassium Chloride Oral Liquid (Potassium Chloride) 20 Meq/15 Ml Liquid 20 Meq PEG BID Phenytoin 125 Mg/5 Ml Oral.susp 10 Ml PEG BID Lasix (Furosemide) 40 Mg Tablet 1 Tab PO DAILY Levetiracetam 100 Mg/1 Ml Solution 10 Ml PEG BID Ferosul (Ferrous Sulfate) 220 Mg/5 Ml Solution 7.5 Ml PEG DAILY Docusate Sodium 50 Mg/5 Ml Liquid 10 Ml PEG BID Cefpodoxime Proxetil 200 Mg Tablet 1 Tab PO Q12HR Vitals/I & O Vital Sign - Last 24 Hours 01/20/19 01/20/19 01/20/19 01/20/19 12:30 12:30 15:20 16:00 Temp 97.9 97.9 Pulse 88 Resp 24 B/P (MAP) 137/78 (97) Pulse Ox 91 100 O2 Delivery Non-Rebreather NonRebreather Mask NonRebreather Mask Nasal Cannula O2 Flow Rate 15.0 10.0 12.0 5.0 01/20/19 01/20/19 01/20/19 01/20/19 16:00 17:00 17:24 18:00 Temp 97.9 97.9 Pulse 87 91 85 92 Resp 28 30 35 B/P (MAP) 153/79 (103) 159/82 (107) 159/82 174/91 (118) Pulse Ox 97 100 100 O2 Delivery Nasal Cannula Nasal Cannula Nasal Cannula O2 Flow Rate 5.0 5.0 5.0 01/20/19 01/20/19 01/20/19 01/20/19 18:07 19:00 20:00 20:00 Temp 96.6 96.6 Pulse 92 90 Resp 38 42 43 B/P (MAP) 154/80 (104) 163/81 (108) Pulse Ox 100 100 100 O2 Delivery Nasal Cannula Nasal Cannula Nasal Cannula Nasal Cannula O2 Flow Rate 5.0 5.0 5.0 5.0 01/20/19 01/20/19 01/20/19 01/20/19 20:39 21:00 21:53 22:00 Pulse 88 90 Resp 51 50 36 B/P (MAP) 159/81 (107) 136/62 (86) Pulse Ox 100 100 100 100 O2 Delivery Nasal Cannula Nasal Cannula Nasal Cannula Nasal Cannula O2 Flow Rate 5.0 5.0 5.0 5.0 01/20/19 01/20/19 01/21/19 01/21/19 22:53 23:00 00:00 00:00 Temp 97.3 97.3 Pulse 92 77 Resp 36 15 22 B/P (MAP) 152/71 (98) 153/72 (99) Pulse Ox 100 98 100 O2 Delivery Nasal Cannula Nasal Cannula Nasal Cannula Nasal Cannula O2 Flow Rate 5.0 5.0 4.0 4.0 01/21/19 01/21/19 01/21/19 01/21/19 01:00 02:00 02:59 03:39 Pulse 85 91 85 Resp 10 19 26 B/P (MAP) 150/66 (94) 148/62 (90) 142/64 (90) Pulse Ox 100 100 100 O2 Delivery Nasal Cannula Nasal Cannula Nasal Cannula Nasal Cannula O2 Flow Rate 5.0 5.0 4.0 4.0 01/21/19 01/21/19 01/21/19 01/21/19 04:00 05:00 06:00 07:00 Temp 97.6 97.6 Pulse 88 85 83 90 Resp 22 14 21 17 B/P (MAP) 139/69 (92) 146/64 (91) 150/75 (100) 134/68 (90) Pulse Ox 100 100 100 100 O2 Delivery Nasal Cannula Nasal Cannula Nasal Cannula Nasal Cannula O2 Flow Rate 4.0 4.0 4.0 2.0 01/21/19 01/21/19 01/21/19 01/21/19 07:37 07:38 08:00 08:00 Pulse 81 88 89 Resp 19 B/P (MAP) 134/63 134/63 136/66 (89) Pulse Ox 100 O2 Delivery Nasal Cannula Nasal Cannula O2 Flow Rate 2.0 2.0 01/21/19 01/21/19 08:25 11:42 Pulse Ox 98 100 O2 Delivery Room Air Room Air Intake and Output 01/20/19 01/20/19 01/21/19 15:00 23:00 07:00 Intake Total 1900 ml 801.1 ml Output Total 525 ml 1035 ml 185 ml Balance -525 ml 865 ml 616.1 ml PHIL VILLARREAL MD Jan 21, 2019 11:56
[2019-01-21] MEDS ORDERED: POTASSIUM CL 20MEQ D5-0.45NACL 1,000 ML IV SCH (12:00)
[2019-01-21] MEDS: METOCLOPRAMIDE HCL 10 MG/2 ML VIAL. IV SCH ×3 (12:09→23:52)
[2019-01-21] MEDS: FOSPHENYTOIN 100 MG/2 ML VIAL. IV SCH ×2 (13:56→22:15)
--- NOTE | 2019-01-21 14:48 | NUR ---
Patient transferred from ICU. Agree with previous certified maintenance welder. Will continue to monitor and care for according to poc.
[2019-01-21] MEDS: ENOXAPARIN 40 MG/0.4 ML SYRINGE. SQ SCH (16:01)
--- NOTE | 2019-01-21 19:09 | NUR ---
Accidentally scanned 1800 medication but did not save. Administered manually on computer.
[2019-01-21] MEDS ORDERED: levETIRAcetam 1,000 MG in IV DEXTROSE 5% 100ML 100 ML IV SCH (21:00)
[2019-01-21] MEDS ORDERED: FAMOTIDINE 20 MG/2 ML VIAL IVP SCH (21:00)
--- NOTE | 2019-01-22 03:46 | NUR ---
Pt was having HR and O2 continuously monitored. At 0235 vitals were measured, HR of 54 and an O2 Sat 82. Aid returned to room at 0240 to check vitals for 0300 and pt was no longer breathing. Apical pulse listened to for 1 minute, no heart beat heard, no rise or fall in chest. Pt pronounced at 0240 by this RN and second RN.
[2019-01-22] MEDS ORDERED: FUROSEMIDE 20 MG/2 ML VIAL. IVP SCH (09:00)
[2019-01-22] MEDS ORDERED: DEXAMETHASONE SOD PHOS 4 MG/ML VIAL IV SCH (09:00)
[2019-01-22] MEDS ORDERED: SCOPOLAMINE 1.5MG PATCH. TD SCH (09:00)
--- NOTE | 2019-01-22 10:08 | PDOC ---
Provider Note Provider Note discharge summary dictated # [id number] PHIL VILLARREAL MD Jan 22, 2019 10:08
--- NOTE | 2019-01-22 10:56 | DS ---
DATE OF DISCHARGE: 01/22/2019 DISCHARGE SUMMARY/EXPIRATION SUMMARY CONSULTANTS: Dr. Ugalde and Dr. Trujillo. FINAL DIAGNOSES: 1. Witnessed aspiration. 2. Atelectasis of the left lung secondary to obstruction of the left main stem bronchus following the aspiration. 3. Acute hypoxic and hypercarbic respiratory failure. 4. Brain masses, neoplasm suspected. 5. Encephalopathy. 6. Diabetes mellitus type 2. 7. Hypertension. 8. Hyperlipidemia. 9. Obstructive sleep apnea. 10. Paroxysmal atrial fibrillation. 11. Anemia of chronic disease. 12. Severe calorie malnutrition. 13. Coronary artery disease. HOSPITAL COURSE: The patient is an 83-year-old -[place] male who was residing in a snf facility with a history of hypertension, coronary artery disease, diabetes mellitus type 2, hyperlipidemia, paroxysmal atrial fibrillation, permanent pacemaker/AICD, obstructive sleep apnea, history of ischemic cardiomyopathy with chronic systolic congestive heart failure. Last echocardiogram showed a preserved left ventricular ejection fraction, admitted to [facility] in 11/2018 with left-sided hemiparesis. An MRI of the brain showed numerous masses of the brain including a large one in the right parietal area with spastic upper extremity hemiparesis. 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 CAT scan of the abdomen and pelvis do not show any primary. He was started on Dilantin and Keppra and also Decadron to help prevent seizures and to control the edema related to the brain masses. He had a PEG placed and received tube feedings. This is in the [facility] where he had a witnessed aspiration, had to be bagged, paramedics arrived and sent to the [facility] Emergency Room where he was a do not resuscitate. Chest x-ray showed a complete whiteout of the left lung and a CAT scan of the chest after admission showed complete atelectasis of left lung, most likely at the main stem bronchus on the left side. The patient was seen by Infectious Disease doctor, Dr. Griffin and also Dr. Trujillo for Pulmonary. Received IV vancomycin and Zosyn. The vancomycin eventually was discontinued and the family wanted to be aggressive. Realizing that his prognosis was poor and they wanted to go ahead with a bronchoscopy and the patient received oxygen. He was a do not resuscitate and continued his antibiotics and IV fluids. He had some evidence of gastroparesis. His KUB showed no evidence of bowel obstruction and he was started on IV metoclopramide. The patient earlier this morning. FINAL DIAGNOSES: 1. Witnessed aspiration. 2. Left lung atelectasis secondary to suspected obstruction at the left main stem bronchus, probably related to the witnessed aspiration. 3. Acute hypoxic and hypercarbic respiratory failure. 4. Brain mass, suspect malignancy, although it was not biopsied. 5. Encephalopathy, he was unresponsive and did not track with his eyes. 6. He has diabetes mellitus type 2. 7. Hypertension. 8. Hyperlipidemia. 9. Obstructive sleep apnea. 10. Paroxysmal atrial fibrillation. 11. Anemia of chronic disease. 12. Severe calorie malnutrition. 13. Coronary artery disease. 14. He also has spastic upper extremity hemiparesis, but he did not move his arms or legs either. PHIL VILLARREAL MD DR: LUPIS/juana JOB#: [id number] / [id number]
== END 2019-01-22 06:58 | disposition expired | DRG 177 ==
LOC: ER 19:37 → 5 NORTH 21:03 → 2 NORTH 01-20 12:10 → 1 WEST ICU 01-20 15:53 → 5 NORTH 01-21 12:59
PROVIDERS: ADMIT Internal Medicine; ATTEND Internal Medicine
DX: J69.0 Pneumonitis due to inhalation of food and vomit (principal); J96.01 Acute respiratory failure with hypoxia; E43 Unspecified severe protein-calorie malnutrition; G92 Toxic encephalopathy; J96.02 Acute respiratory failure with hypercapnia; G81.94 Hemiplegia, unspecified affecting left nondominant side; I50.22 Chronic systolic (congestive) heart failure; J98.11 Atelectasis; N39.0 Urinary tract infection, site not specified; D63.8 Anemia in other chronic diseases classified elsewhere; E11.42 Type 2 diabetes mellitus with diabetic polyneuropathy; E78.00 Pure hypercholesterolemia, unspecified; E78.5 Hyperlipidemia, unspecified; G40.909 Epilepsy, unspecified, not intractable, without status epilepticus; G47.33 Obstructive sleep apnea (adult) (pediatric); Z96.652 Presence of left artificial knee joint; I11.0 Hypertensive heart disease with heart failure; I25.10 Atherosclerotic heart disease of native coronary artery without angina pectoris; I25.5 Ischemic cardiomyopathy; I48.0 Paroxysmal atrial fibrillation; K31.84 Gastroparesis; K80.20 Calculus of gallbladder without cholecystitis without obstruction; M17.11 Unilateral primary osteoarthritis, right knee; N40.0 Benign prostatic hyperplasia without lower urinary tract symptoms; Z66 Do not resuscitate; Z83.3 Family history of diabetes mellitus; Z85.841 Personal history of malignant neoplasm of brain; Z87.891 Personal history of nicotine dependence; Z88.1 Allergy status to other antibiotic agents; Z95.0 Presence of cardiac pacemaker; Z95.810 Presence of automatic (implantable) cardiac defibrillator; Z68.25 Body mass index [BMI] 25.0-25.9, adult; Z88.8 Allergy status to other drugs, medicaments and biological substances
CPT/HCPCS: 31720; 36415; 71045; 71250; 74018; 80048; 80053; 80185; 80202; 81001; 82962; 83605; 83880; 84145; 84484; 85025; 85610; 87040; 87086; 87641; 93005; 94640; 94760; J1650; J1815; J1953; J2543; J2765; J3370; J3490; J7040; J7050; J7613; Q2009; J7030